=== PATIENT | female | born 1945 | race Caucasian/White ===

== ENCOUNTER → 2016-09-11 | Outpatient (CLI) | payer MEDICARE ==
[~2016-09-11] MED LIST: /WARF25TA OR; AMITRIPTYLINE PO; ASPIRIN PO; CALAN SR PO; CLARITAN PO; CRESTOR PO; FLONASE; KLOR CON PO; LASIX PO; LOPID PO; METFORMIN PO; MOBIC PO; PLAQUENIL PO; PROTPAK PO; TOPRAL PO; TYLE325T5 PO; ULTR50TA PO
--- NOTE | 2016-09-11 10:22 | REP ---
Chest two views HISTORY: Hypertension Comparison: 04/20/2014 The lungs are clear. The cardiac silhouette is enlarged. The pulmonary vasculature is normal in appearance. The bony structure is intact. IMPRESSION: Cardiomegaly. Signed by Pal Lin MD 09/11/2016 10:14 A
[2016-09-11 14:28] LABS: MEAN CORPUSCULAR HEMOGLOBIN 25.1 pg (27.0-33.0); MEAN CORPUSCULAR HGB CONC 30.9 g/dl (32.0-36.5); MEAN CORPUSCULAR VOLUME 81.3 fl (80.0-96.0); RED CELL DISTRIBUTION WIDTH 15.8 % (11.5-14.5); WHITE BLOOD COUNT 5.2 K/mm3 (4.0-10.0)
[2016-09-11 14:50] LABS: ALBUMIN 4.3 GM/DL (3.2-5.2); ALBUMIN/GLOBULIN RATIO 1.43 (1.00-1.93); ALKALINE PHOSPHATASE 54 U/L (45-117); ALT/SGPT 39 U/L (12-78); ANION GAP 9 MEQ/L (8-16); AST/SGOT 12 U/L (15-37); BILIRUBIN,TOTAL 0.6 MG/DL (0.2-1.0); BLOOD UREA NITROGEN 21 MG/DL (7-18); CALCIUM LEVEL 9.8 MG/DL (8.8-10.2); CARBON DIOXIDE LEVEL 31 MEQ/L (21-32); CHLORIDE LEVEL 101 MEQ/L (98-107); CHOLESTEROL LEVEL 215 MG/DL (<200); GLOMERULAR FILTRATION RATE > 60.0 (>39); GLUCOSE, FASTING 166 MG/DL (83-110); POTASSIUM SERUM 4.4 MEQ/L (3.5-5.1); SODIUM LEVEL 141 MEQ/L (136-145); TOTAL PROTEIN 7.3 GM/DL (6.4-8.2); TRIGLYCERIDES LEVEL 366 MG/DL (<150)
== END ==
LOC: M SMT 09:42
PROVIDERS: ATTEND Family Medicine
DX: I10 Essential (primary) hypertension (principal); E11.9 Type 2 diabetes mellitus without complications; R53.83 Other fatigue; I51.7 Cardiomegaly

== ENCOUNTER → 2016-11-16 | Outpatient (CLI) | payer MEDICARE ==
[2016-11-16 17:49] LABS: BASO % 0.7 % (0.0-1.0); EOS # 0.2 K/mm3 (0.0-0.50); EOS % 2.2 % (0.0-3.0); LARGE UNSTAINED CELL # 0.1 K/mm3 (0.0-0.4); LARGE UNSTAINED CELL % 2.1 % (0.0-4.0); LYMPH # 2.7 K/mm3 (1.5-4.5); MEAN CORPUSCULAR HEMOGLOBIN 25.7 pg (27.0-33.0); MEAN CORPUSCULAR HGB CONC 31.6 g/dl (32.0-36.5); MEAN CORPUSCULAR VOLUME 81.6 fl (80.0-96.0); MONO # 0.6 K/mm3 (0.0-0.8); MONO % 8.4 % (0.0-5.0); NEUTROPHILS # 3.4 K/mm3 (1.8-7.7); NEUTROPHILS % 49.6 % (36.0-66.0); PLATELET COUNT, AUTOMATED 224 k/mm3 (150-450); RED CELL DISTRIBUTION WIDTH 15.6 % (11.5-14.5); WHITE BLOOD COUNT 6.9 K/mm3 (4.0-10.0)
[2016-11-16 18:03] LABS: ALT/SGPT 32 U/L (12-78); CREATININE FOR GFR 0.88 MG/DL (0.55-1.02); GLOMERULAR FILTRATION RATE > 60.0 (>39)
[2016-11-16 20:18] LABS: ERYTHROCYTE SEDIMENTATION RATE 8 mm/hr (0-30)
== END ==
LOC: M SMT 14:12
PROVIDERS: ATTEND Internal Medicine Rheumatology
DX: Z51.81 Encounter for therapeutic drug level monitoring (principal); Z79.899 Other long term (current) drug therapy; M35.1 Other overlap syndromes; K76.0 Fatty (change of) liver, not elsewhere classified

== ENCOUNTER 2018-01-08 07:01 | Day surgery (SDC) | payer MEDICARE ==
[2018-01-08] MEDS: NS 1,000 ML IV (07:28)
[2018-01-08 07:37] LABS: BEDSIDE GLUCOSE 169 MG/DL (83-110)
[2018-01-08] MEDS ORDERED: PROPOFOL 200 MG/20 ML VIAL As Ordered (08:24)
== END 2018-01-08 09:05 | disposition home or self-care (01) ==
LOC: M OPP 07:01
DX: Z12.11 Encounter for screening for malignant neoplasm of colon (principal); Z86.010 Personal history of colon polyps; K64.0 First degree hemorrhoids; K57.30 Diverticulosis of large intestine without perforation or abscess without bleeding; I10 Essential (primary) hypertension; E78.5 Hyperlipidemia, unspecified; E11.9 Type 2 diabetes mellitus without complications; K21.9 Gastro-esophageal reflux disease without esophagitis; R06.02 Shortness of breath; M19.90 Unspecified osteoarthritis, unspecified site; M54.9 Dorsalgia, unspecified; J02.9 Acute pharyngitis, unspecified; Z79.82 Long term (current) use of aspirin; Z79.899 Other long term (current) drug therapy; Z79.84 Long term (current) use of oral hypoglycemic drugs; Z87.891 Personal history of nicotine dependence; Z83.71 Family history of colonic polyps
CPT/HCPCS: G0105

== ENCOUNTER → 2018-08-13 | Outpatient (CLI) | payer MEDICARE ==
[~2018-08-13] MED LIST changes: +ASPI325T PO; +CORE12.5 PO; +GLIP5TAB8 PO; +LIPI80TA PO; +LOSA100T50 PO
[2018-08-13 13:13] LABS: HEMATOCRIT 38.8 % (36.0-47.0); HEMOGLOBIN 12.3 g/dl (12.0-15.5); MEAN CORPUSCULAR HEMOGLOBIN 27.3 pg (27.0-33.0); MEAN CORPUSCULAR HGB CONC 31.7 g/dl (32.0-36.5); MEAN CORPUSCULAR VOLUME 86.2 fl (80.0-96.0); PLATELET COUNT, AUTOMATED 227 10^3/uL (150-450); WHITE BLOOD COUNT 7.6 10^3/uL (4.0-10.0)
[2018-08-13 13:44] LABS: ALBUMIN 4.4 GM/DL (3.2-5.2); BILIRUBIN,TOTAL 0.4 MG/DL (0.2-1.0); CALCIUM LEVEL 10.3 MG/DL (8.8-10.2); CHOLESTEROL RISK RATIO 5.918 (<5); CREATININE FOR GFR 1.17 MG/DL (0.55-1.30); GLOMERULAR FILTRATION RATE 48.1 (>39); PERCENT SATURATION 16.4 % (13.2-45.0); POTASSIUM SERUM 4.5 MEQ/L (3.5-5.1); THYROID STIMULATING HORMONE 1.21 uIU/ML (0.358-3.740); TOTAL PROTEIN 8.1 GM/DL (6.4-8.2)
[2018-08-13 14:36] LABS: HEMOGLOBIN A1c 9.9 %
== END ==
LOC: M SMT 10:09
PROVIDERS: ATTEND Family Medicine
DX: D64.9 Anemia, unspecified (principal); E03.9 Hypothyroidism, unspecified; R53.81 Other malaise

== ENCOUNTER 2018-09-11 06:17 | Day surgery (SDC) | payer MEDICARE ==
[~2018-09-11] VITALS: Ht 165.1 cm; Wt 104.8 kg
[~2018-09-11 06:17] MED LIST changes: +ASPI1TAB PO; +CALA240T PO; +CLAR10CA3 PO; +FLON1SPR; +INVO100T PO; +KLOR1CAP PO; +LASI40TA9 PO; +LOPI600T PO; +METF10004 PO; +PROT1TAB2 PO; +SLOW142T PO; +XALA0.007 OU
[2018-09-11] MEDS ORDERED: BALANCED SALT IRRIGATION SOLUTION 500ML BAG (FOR OR EYE MACHINE) As Ordered ONE (06:35)
[2018-09-11] MEDS ORDERED: POVIDONE-IODINE 5% OPHTH PREP SOL 30ML As Ordered ONE (06:35)
[2018-09-11] MEDS ORDERED: CEFUROXIME 1MG/0.1ML INTRACAMERAL INJ As Ordered ONE (06:36)
[2018-09-11] MEDS ORDERED: LIDOCAINE 0.75%/EPINEPHRINE 0.025% IN BSS 1ML SYR INTRACAMERAL (OR ONLY) As Ordered ONE (06:36)
[2018-09-11] MEDS ORDERED: DUOVISC (0.50ML VISCOAT/0.55ML PROVISC) OPHTH KIT As Ordered ONE ×2 (06:36→08:29)
[2018-09-11] MEDS ORDERED: TROPICAMIDE 1% OPHTH SOLN 2ML OS ONE (07:00)
[2018-09-11] MEDS ORDERED: PROPARACAINE 0.5% OPHTH SOL 15ML OS ONE (07:00)
[2018-09-11] MEDS ORDERED: PHENYLEPHRINE 2.5% OPHTH SOL 2ML OS ONE (07:00)
[2018-09-11] MEDS ORDERED: OFLOXACIN 0.3 % (OCUFLOX) OPTH SOL 5ML OS ONE (07:00)
[2018-09-11] MEDS ORDERED: MIDAZOLAM INJ 2 MG/2 ML VIAL (J2250) As Ordered ONE (07:10)
[2018-09-11] MEDS ORDERED: fentaNYL 100 MCG/2 ML INJECTION (J3010) As Ordered ONE (07:10)
[2018-09-11 09:00] VITALS: BP 132/63
--- NOTE | 2018-09-15 09:58 | RO ---
DATE OF PROCEDURE: 09/11/2018 PREOPERATIVE DIAGNOSES: 1. Visually significant nuclear sclerotic cataract of the left eye. 2. Primary open angle glaucoma, mild stage. 3. Regular astigmatism. POSTOPERATIVE DIAGNOSES: 1. Visually significant nuclear sclerotic cataract of the left eye. 2. Primary open angle glaucoma, mild stage. 3. Regular astigmatism. PROCEDURES: 1. Extracapsular cataract removal, insertion of intraocular lens implant with placement of toric implant, 24.5 diopters with use of intraoperative aberrometry and femtosecond laser. 2. Use of endoscopic cyclophotocoagulation (270 degrees, continuous mode, 25). 3. Placement of Glaukos iStent. SURGEON: Carlos Green DO DRILLING ASSISTANT: None. ANESTHESIA: Local with monitored anesthesia care (MAC). COMPLICATIONS: None. POSTOPERATIVE CONDITION: Stable. INDICATIONS FOR SURGERY: 1. Blurred vision affecting patients activities of daily living. DESCRIPTION OF PROCEDURE: The patient was seen in the preoperative area and properly identified. The correct operative eye was identified and marked. The patient received topical anesthetic, antibiotics, and topical dilating drops. The patient was then transferred to the operating room. The correct side was re-identified, and a time-out was performed. The eye was prepped and draped in a sterile fashion. The eyelids were isolated with Tegaderm tape, and the lids were held open with an adjustable speculum. A 1.0 mm paracentesis incision was made. Intraocular preservative-free Shugarcaine was then injected into the anterior chamber. Viscoelastic was then injected into the anterior chamber through the paracentesis. Using a 2.4 mm sharp-tipped keratome, the anterior chamber was entered via a temporal clear cornea incision. A continuous curvilinear capsulorrhexis was created with Utrata forceps. Hydrodissection was performed with balanced salt solution (BSS) on a blunt cannula until the nucleus was able to rotate freely. The crystalline lens was phacoemulsified and aspirated. Irrigation/aspiration was used to remove the cortical material. Cohesive viscoelastic was placed into the capsular bag to deepen it. The implant was placed into the capsular bag and allowed to unfold. Placement was confirmed by visualizing the anterior capsulorrhexis. Additional viscoelastic was placed in the anterior chamber and ciliary sulcus. The endoscopic cyclophotocoagulation (ECP) probe was placed in the eye, and the ciliary processes were visualized. The laser was applied without difficulty, and the probe was withdrawn. Irrigation/aspiration was used to remove the viscoelastic. The clear corneal incision was hydrated with BSS on a blunt cannula. The lens was well positioned. The incisions were then tested for leaks and found to be negative. The eye was then palpated for appropriate pressure and adjusted accordingly with BSS. The eyelid speculum was then carefully removed. A shield was placed over the eye. The patient tolerated the procedure well and was discharged to the recovery unit in a stable condition.
== END 2018-09-11 09:15 | disposition home or self-care (01) ==
LOC: M SDC 06:17
PROVIDERS: ATTEND Ophthalmology
DX: H25.12 Age-related nuclear cataract, left eye (principal); H40.1121 Primary open-angle glaucoma, left eye, mild stage; H52.222 Regular astigmatism, left eye; I10 Essential (primary) hypertension; E78.5 Hyperlipidemia, unspecified; E11.9 Type 2 diabetes mellitus without complications; K21.9 Gastro-esophageal reflux disease without esophagitis; I49.9 Cardiac arrhythmia, unspecified; R06.02 Shortness of breath; M54.9 Dorsalgia, unspecified; D50.9 Iron deficiency anemia, unspecified; M12.9 Arthropathy, unspecified; E66.01 Morbid (severe) obesity due to excess calories; Z68.38 Body mass index [BMI] 38.0-38.9, adult; Z79.899 Other long term (current) drug therapy; Z79.84 Long term (current) use of oral hypoglycemic drugs; Z79.82 Long term (current) use of aspirin; Z78.0 Asymptomatic menopausal state; Z98.51 Tubal ligation status; Z96.653 Presence of artificial knee joint, bilateral
CPT/HCPCS: 66183; 66711; 66984; C1783; J2250; J3010; V2787

== ENCOUNTER 2018-10-09 06:03 | Day surgery (SDC) | payer MEDICARE ==
[~2018-10-09] VITALS: Ht 165.1 cm; Wt 104.3 kg
[~2018-10-09 06:03] MED LIST changes: -/WARF25TA OR; +ASPI-1 PO; -ASPI1TAB PO; -ASPI325T PO; +ASPI81TA26 PO; +COUM1TAB18 OR
[2018-10-09] MEDS ORDERED: BALANCED SALT IRRIGATION SOLUTION 500ML BAG (FOR OR EYE MACHINE) As Ordered ONE (06:29)
[2018-10-09] MEDS ORDERED: POVIDONE-IODINE 5% OPHTH PREP SOL 30ML As Ordered ONE (06:29)
[2018-10-09] MEDS ORDERED: CEFUROXIME 1MG/0.1ML INTRACAMERAL INJ As Ordered ONE (06:30)
[2018-10-09] MEDS ORDERED: LIDOCAINE 0.75%/EPINEPHRINE 0.025% IN BSS 1ML SYR INTRACAMERAL (OR ONLY) As Ordered ONE (06:31)
[2018-10-09] MEDS ORDERED: DUOVISC (0.50ML VISCOAT/0.55ML PROVISC) OPHTH KIT As Ordered ONE ×2 (06:31→07:00)
[2018-10-09] MEDS ORDERED: OFLOXACIN 0.3 % (OCUFLOX) OPTH SOL 5ML OD ONE (07:00)
[2018-10-09] MEDS ORDERED: PHENYLEPHRINE 2.5% OPHTH SOL 2ML OD ONE (07:00)
[2018-10-09] MEDS ORDERED: PROPARACAINE 0.5% OPHTH SOL 15ML OD ONE (07:00)
[2018-10-09] MEDS ORDERED: TROPICAMIDE 1% OPHTH SOLN 2ML OD ONE (07:00)
[2018-10-09] MEDS ORDERED: MIDAZOLAM INJ 2 MG/2 ML VIAL (J2250) As Ordered ONE (07:36)
[2018-10-09] MEDS ORDERED: fentaNYL 100 MCG/2 ML INJECTION (J3010) As Ordered ONE (07:36)
[2018-10-09 08:01] VITALS: BP 155/63
[2018-10-09] MEDS ORDERED: ONDANSETRON 4MG/2ML VIAL (J2405) IV PRN (08:15)
[2018-10-09] MEDS ORDERED: ACETAMINOPHEN TAB 650MG DOSE (2X325MG) PO PRN (08:15)
--- NOTE | 2018-10-14 17:30 | RO ---
DATE OF PROCEDURE: 10/09/2018 PREOPERATIVE DIAGNOSES: 1. Visually significant nuclear sclerotic cataract right eye. 2. Primary open angle glaucoma right eye. POSTOPERATIVE DIAGNOSES: 1. Visually significant nuclear sclerotic cataract right eye. 2. Primary open angle glaucoma right eye. PROCEDURE: 1. Cataract extraction with use of phacoemulsification and placement of intraocular lens, SN6AT3 at 003 degrees, right eye, with the use of intraoperative aberrometry. 2. Placement of Glaukos iStent right eye. 3. Use of endoscopic cyclophotocoagulation right eye (270 degrees, continuous mode, 25). SURGEON: Carlos Green DO TRAVEL RN OR: None. ANESTHESIA: Local with monitored anesthesia care (MAC). COMPLICATIONS: None. POSTOPERATIVE CONDITION: Stable. INDICATIONS FOR SURGERY: Blurred vision affecting patients activities of daily living. DESCRIPTION OF PROCEDURE: The patient was seen in the preoperative area and properly identified. The correct operative eye was identified and marked. The patient received topical anesthetic, antibiotics, and topical dilating drops. The patient was then transferred to the operating room. The correct side was re-identified, and a time-out was performed. The eye was prepped and draped in a sterile fashion. The eyelids were isolated with Tegaderm tape, and the lids were held open with an adjustable speculum. A 1.0 mm paracentesis incision was made. Intraocular preservative-free Shugarcaine was then injected into the anterior chamber. Viscoelastic was then injected into the anterior chamber through the paracentesis. Using a 2.4 mm sharp-tipped keratome, the anterior chamber was entered via a temporal clear cornea incision. A continuous curvilinear capsulorrhexis was created with Utrata forceps. Hydrodissection was performed with balanced salt solution (BSS) on a blunt cannula until the nucleus was able to rotate freely. The crystalline lens was phacoemulsified and aspirated. Irrigation/aspiration was used to remove the cortical material. Cohesive viscoelastic was placed into the capsular bag to deepen it. The Optiwave Refractive Analysis (ORA) device was turned on, two sets of measurements were obtained, and the implant power was confirmed. The implant was placed into the capsular bag and allowed to unfold. Placement was confirmed by visualizing the anterior capsulorrhexis. Additional viscoelastic was placed in the anterior chamber and on top of the cornea. The head was untaped and rotated away. The microscope was rotated to 45 degrees. A gonioprism was placed on the cornea, and the angle was visualized. An iStent was placed into the trabecular meshwork without difficulty. A small gush of heme was noted at the iStent snorkel tip, indicating appropriate placement. A gentle tapping motion was used to seat the stent into position. The head was placed face up and the microscope to 0 degrees. Additional viscoelastic was placed in the anterior chamber and ciliary sulcus. The endoscopic cyclophotocoagulation (ECP) probe was placed in the eye, and the ciliary processes were visualized. The laser was applied without difficulty, and the probe was withdrawn. Irrigation/aspiration was used to remove the viscoelastic. The clear corneal incision was hydrated with BSS on a blunt cannula. The lens was well positioned. The incisions were then tested for leaks and found to be negative. The eye was then palpated for appropriate pressure and adjusted accordingly with BSS. The eyelid speculum was then carefully removed. A shield was placed over the eye. The patient tolerated the procedure well and was discharged to the recovery unit in a stable condition.
== END 2018-10-09 08:23 | disposition home or self-care (01) ==
LOC: M SDC 06:03
PROVIDERS: ATTEND Ophthalmology
DX: H25.11 Age-related nuclear cataract, right eye (principal); H40.1111 Primary open-angle glaucoma, right eye, mild stage; E11.9 Type 2 diabetes mellitus without complications; I10 Essential (primary) hypertension; E78.5 Hyperlipidemia, unspecified; K21.9 Gastro-esophageal reflux disease without esophagitis; Z79.82 Long term (current) use of aspirin; Z79.01 Long term (current) use of anticoagulants; Z79.899 Other long term (current) drug therapy; Z79.84 Long term (current) use of oral hypoglycemic drugs
CPT/HCPCS: 66183; 66711; 66984; C1783; J2250; J3010; V2787

== ENCOUNTER → 2018-11-19 | Outpatient (CLI) | payer MEDICARE ==
[2018-11-19 13:54] LABS: APPEARANCE, URINE CLEAR (CLEAR); BACTERIA, URINE AUTO NEGATIVE (NEGATIVE); BILIRUBIN, URINE AUTO NEGATIVE (NEGATIVE); BLOOD, URINE BLOOD NEGATIVE (NEGATIVE); COLOR, URINE YELLOW (YELLOW); GLUCOSE, URINE (UA) AUTO 3+ mg/dL (NEGATIVE); KETONE, URINE AUTO NEGATIVE (NEGATIVE); LEUKOCYTE ESTERASE, URINE AUTO 3+ (NEGATIVE); MUCUS, URINE SMALL (NEGATIVE); NITRITE, URINE AUTO NEGATIVE (NEGATIVE); PROTEIN, URINE AUTO 1+ mg/dL (NEGATIVE); RBC, URINE AUTO 7 /HPF (0-3); SPECIFIC GRAVITY URINE AUTO 1.013 (1.002-1.035); SQUAMOUS EPITHELIAL CELL UR AU 0 /HPF (0-6); UROBILINOGEN, URINE AUTO 0.2 mg/dL (0.0-2.0); WBC, URINE AUTO TNTC /HPF (0-3)
== END ==
LOC: M SMT 09:52
PROVIDERS: ATTEND Family Medicine
DX: N39.0 Urinary tract infection, site not specified (principal)

== ENCOUNTER → 2019-02-13 | Outpatient (CLI) | payer MEDICARE ==
--- NOTE | 2019-02-17 13:16 | DEXA ---
AP SPINE L1 - L4 1.352 1.3 3.0 LT FEMUR TOTAL 1.073 0.5 2.3 LT NECK 0.898 -1.0 0.9 RT FEMUR TOTAL 1.020 0.1 1.8 RT NECK 0.913 -0.9 1.0 TOTAL BODY TOTAL OTHER COMMENTS: Normal bone densitometry of the spine. Normal bone densitometry of the right hip. There is low bone density of the left hip. The density of the spine has increased 6.5% since 07/14/2001. The density of the left hip has decreased 10.7% since 07/14/2001. The density of the right hip has decreased 9.8% since 07/14/2001. FOLLOW-UP: Recommendation for the next bone density exam: [address]
== END ==
LOC: M WHC 12:41
PROVIDERS: ATTEND Nurse Practitioner Family
DX: N95.9 Unspecified menopausal and perimenopausal disorder (principal)

== ENCOUNTER → 2019-03-18 | Outpatient (CLI) | payer MEDICARE ==
[2019-03-18 13:37] LABS: CHOLESTEROL RISK RATIO 5.647 (<5); PERCENT SATURATION 20.1 % (13.2-45.0); THYROID STIMULATING HORMONE 1.04 uIU/ML (0.358-3.740); TOTAL 25(OH) VITAMIN D 34.1 NG/ML (30.0-100.0)
[2019-03-18 14:07] LABS: HEMOGLOBIN A1c 7.7 %
== END ==
LOC: M SMT 10:23
PROVIDERS: ATTEND Family Medicine
DX: E11.9 Type 2 diabetes mellitus without complications (principal); E03.9 Hypothyroidism, unspecified; R53.83 Other fatigue; D64.9 Anemia, unspecified

== ENCOUNTER → 2019-10-14 | Outpatient (CLI) | payer MEDICARE ==
[2019-10-14 12:51] LABS: HEMATOCRIT 39.4 % (36.0-47.0); HEMOGLOBIN 13.4 g/dl (12.0-15.5); MEAN CORPUSCULAR HEMOGLOBIN 31.5 pg (27.0-33.0); MEAN CORPUSCULAR VOLUME 92.7 fl (80.0-96.0); PLATELET COUNT, AUTOMATED 185 10^3/uL (150-450); RED BLOOD COUNT 4.25 10^6/uL (4.00-5.40); WHITE BLOOD COUNT 7.4 10^3/uL (4.0-10.0)
[2019-10-14 13:17] LABS: ALBUMIN 4.2 GM/DL (3.2-5.2); ALT/SGPT 36 U/L (12-78); BILIRUBIN,TOTAL 0.5 MG/DL (0.2-1.0); BLOOD UREA NITROGEN 39 MG/DL (7-18); CALCIUM LEVEL 10.4 MG/DL (8.8-10.2); CARBON DIOXIDE LEVEL 27 MEQ/L (21-32); CHLORIDE LEVEL 100 MEQ/L (98-107); CHOLESTEROL LEVEL 327 MG/DL (<200); CHOLESTEROL RISK RATIO 6.055 (<5); CREATININE FOR GFR 1.34 MG/DL (0.55-1.30); GLUCOSE, FASTING 264 MG/DL (70-100); HDL CHOLESTEROL 54 MG/DL (>40); IRON (FE) 85 UG/DL (50-170); MAGNESIUM LEVEL 2.4 MG/DL (1.8-2.4); NON-HDL-C 273 MG/DL; PERCENT SATURATION 20.5 % (13.2-45.0); POTASSIUM SERUM 4.7 MEQ/L (3.5-5.1); PROSTATIC SPECIFIC AG MONITOR < 0.01 NG/ML (< 4.00); SODIUM LEVEL 136 MEQ/L (136-145); TOTAL IRON BINDING CAPACITY 415 UG/DL (250-450); TOTAL PROTEIN 7.8 GM/DL (6.4-8.2); TRIGLYCERIDES LEVEL 518 MG/DL (<150)
[2019-10-14 13:18] LABS: HEMOGLOBIN A1c 9.9 %
[2019-10-14 13:21] LABS: TOTAL 25(OH) VITAMIN D 42.8 NG/ML (30.0-100.0)
[2019-10-14 13:22] LABS: VITAMIN B12 LEVEL 331 PG/ML (247-911)
--- NOTE | 2019-10-14 13:56 | REP ---
CHEST, TWO VIEWS: Two views of the chest performed. COMPARISON: 02/10/2018 There si mild bibasilar interstitial fibrotic scarring. No acute infiltrate is seen. There is mild cardiomegaly. The mediastinal silhouette is unchanged. There are degenerative changes of the spine. IMPRESSION: Stable chronic changes and mild cardiomegaly. No acute infiltrate. Electronically Signed by Usama Arce MD 10/14/2019 02:22 P
--- NOTE | 2019-10-15 19:25 | ECGEPIP ---
[facility] Test Date: 2019-10-14 Pat Name: LUIS ELLIOTT Department: Room: - Gender: Female Patient Service Associate: CORTNEY : 1945 Requested By: David Olivares Order Number: [id number] Reading MD: Jas Osborn Measurements Intervals [place] Rate: 79 P: 57 [place]: 241 QRS: -50 QRSD: 121 T: 12 QT: 405 QTc: 465 Interpretive Statements Normal sinus rhythm with first degree AV block Left anterior fascicular block Nonspecific T wave abnormality Compared to prior tracing of 02/10/2018, right bundle branch block is no longer e evident Electronically Signed on 10-15-2019 19:25:06 EDT by Jas Osborn
== END ==
LOC: M LAB 12:02
PROVIDERS: ATTEND Family Medicine
DX: I10 Essential (primary) hypertension (principal); R53.83 Other fatigue; I51.7 Cardiomegaly; E11.9 Type 2 diabetes mellitus without complications

== ENCOUNTER → 2020-03-28 | Outpatient (REF) | payer MEDICARE ==
[2020-03-28 18:22] LABS: CRYSTALS, BODY FLUID URIC ACID (NONE SEEN); SOURCE, BODY FLUID CRYSTALS OTHER
== END ==
LOC: M LAB REF 16:47
PROVIDERS: ATTEND Podiatrist
DX: M79.672 Pain in left foot (principal)

== ENCOUNTER → 2020-10-20 | Outpatient (CLI) | payer MEDICARE ==
[2020-10-20 13:09] LABS: HEMATOCRIT 40.7 % (36.0-47.0); HEMOGLOBIN 13.3 g/dl (12.0-15.5); MEAN CORPUSCULAR HEMOGLOBIN 30.1 pg (27.0-33.0); MEAN CORPUSCULAR HGB CONC 32.7 g/dl (32.0-36.5); MEAN CORPUSCULAR VOLUME 92.1 fl (80.0-96.0); PLATELET COUNT, AUTOMATED 174 10^3/uL (150-450); RED BLOOD COUNT 4.42 10^6/uL (4.00-5.40); WHITE BLOOD COUNT 5.5 10^3/uL (4.0-10.0)
[2020-10-20 13:49] LABS: ALBUMIN 4.4 GM/DL (3.2-5.2); BILIRUBIN,TOTAL 0.5 MG/DL (0.2-1.0); CALCIUM LEVEL 11.4 MG/DL (8.8-10.2); CHOLESTEROL RISK RATIO 5.384 (<5); CREATININE FOR GFR 1.03 MG/DL (0.55-1.30); GLOMERULAR FILTRATION RATE 55.5 (>39); MAGNESIUM LEVEL 2.2 MG/DL (1.8-2.4); POTASSIUM SERUM 4.4 MEQ/L (3.5-5.1); THYROID STIMULATING HORMONE 1.09 uIU/ML (0.358-3.740); TOTAL 25(OH) VITAMIN D 40.7 NG/ML (30.0-100.0); TOTAL PROTEIN 7.7 GM/DL (6.4-8.2); URIC ACID 4.8 MG/DL (2.6-6.0)
[2020-10-20 14:39] LABS: HEMOGLOBIN A1c 11.1 %
[2020-10-22 17:07] LABS: Lyme Disease IgG Ab 18 kDa Ban Absent (.); Lyme Disease IgG Ab 23 kDa Ban Present (.); Lyme Disease IgG Ab 28 kDa Ban Absent (.); Lyme Disease IgG Ab 30 kDa Ban Absent (.); Lyme Disease IgG Ab 39 kDa Ban Absent (.); Lyme Disease IgG Ab 41 kDa Ban Present (.); Lyme Disease IgG Ab 45 kDa Ban Absent (.); Lyme Disease IgG Ab 58 kDa Ban Absent (.); Lyme Disease IgG Ab 66 kDa Ban Absent (.); Lyme Disease IgG Ab 93 kDa Ban Absent (.); Lyme Disease IgG West Blot Int Negative (.); Lyme Disease IgG/IgM Antibodie <0.91 ISR (0.00-0.90); Lyme Disease IgM Ab 23 kDa Ban Absent (.); Lyme Disease IgM Ab 39 kDa Ban Absent (.); Lyme Disease IgM Ab 41 kDa Ban Absent (.); Lyme Disease IgM Ab Quantitati 0.84 index (0.00-0.79); Lyme Disease IgM West Blot Int Negative (.)
== END ==
LOC: M LAB 12:34
PROVIDERS: ATTEND Family Medicine
DX: I10 Essential (primary) hypertension (principal); R53.83 Other fatigue; E11.9 Type 2 diabetes mellitus without complications; Z79.899 Other long term (current) drug therapy

== ENCOUNTER 2021-05-02 18:04 | Inpatient (IN) | payer MEDICARE ==
[~2021-05-02] VITALS: Ht 165.1 cm; Wt 92.7 kg
--- OUTSIDE RECORDS SUMMARY | 2021-05-02 18:15 | CCD | Continuity of Care Document ---
Author Author Leilani MELVIN MD Organization Unknown Address [address] [place] [address], [facility] [address] [place] [address] Phone [phone] Care Team Providers Care Batter Mixer Name Role Phone Marshall Glasgow MD [facility] [phone] Problems Active Problems Provider Date Essential hypertension Onset: 11/24/2020 Pure hypercholesterolemia Onset: 021 Social History Type Date Description Comments Sex Unknown Cigarette Use Former Cigarette Smoker 1/2 Pack Daily quit 40 years ago ETOH Use Occasionally consumes alcohol Allergies and adverse reactions Description No Known Drug Allergies Medications Active Medications SIG Qnty Indications Ordering Provide r Date Novofine Plus 32G X 4 mm Misc use as directed with ozempic once weekly 50units E11.65 Vaishnavi kumar MD 01/13/2021 Ozempic (0.25 Or 0.5 MG/Dose) 2mg/1.5ML Solution Pen-Inject use 0.5mg weekly 4.5ml E11.65 Vaishnavi Melvin MD 11/28/2020 Metformin HCL 1000mg Tablets 1 by mout twice daily Unknown Magnesium 500mg Tablets 1 by mouth daily Unknown Alpha-Lipoic Acid 600mg Tablets 1 by mouth once a day Unknown Zinc 50mg Tablets 1 by mouth daily Unknown Vitamin D3 50mcg (2000 Ut) Capsule s 1 by mouth every day Unknown Super B-Complex/Folic Acid/Vitamin C Tablets 1 by mouth daily Unknown Turmeric Curcumin 500mg Capsules 1 by mouth daily Unknown Vitamin B1 100mg Tablets 1 by mouth every day Unknown Vitamin B6 100mg Tablets 1 by mouth daily Unknown Biotin 10mg Capsules 1 by francisco th daily Unknown Folic Acid 400mcg Tablets 1 by mouth every day Unknown Glipizide 5mg Tablets 1 by mouth twice daily Unknown Allopurinol 300mg Tablets 1 by mouth daily Unknown Atorvastatin Calcium 80mg Tablets 1 by mouth daily Unknown Gemfibrozil 600mg Tablets 1 by mouth twice daily Unknown Colchicine 0.6mg Capsules 1 by mouth daily as needed Unknown Aspirin 81mg Tablets DR 1 by mouth every day Unknown Losartan Potassium 100mg Tablets 1 by mouth daily Unknown Verapamil HCL ER 240mg Caps ER 24H R 1 by mouth daily Unknown Pantoprazole Sodium 40mg Tablets D R 1 by mouth daily Unknown Furosemide 40mg Tablets 1 by mouth daily Unknown Carvedilol 12.5mg Tablets 1 by mouth twice daily Unknown Accu-Chek Daysi Device use as directed to check blood sugars Unknown History Medications Freestyle Paul 2/[place]/Flash Glucose M onitoring System 2Reader Device use as directed to check blood sugars 1units E11.65 Vaishnavi Melvin MD 01/27/2021 - 01/27/2021 Immunizations Description No Information Available Vital Signs Date Vital Result Comment 03/21/2021 9:57am BP Systolic 124 mmHg BP Diastolic 70 mmHg Heart Rate 81 /min Weight 204.12 lb O2 % BldC Oximetry 98 % 11/28/2020 1:08pm BP Systolic 132 mmHg BP Diastolic 62 mmHg Heart Rate 63 /min Body Temperature 96.5 F Height 62.6 inches 5'2.60" Weight 211.00 lb BMI (Body Mass Index) 37.9 kg/m2 O2 % BldC Oximetry 98 % Results Test Acquired Date Facility Test Result H/L Range Note Laboratory test finding 03/21/2021 In House Glucose 152 Hemoglobin A1c 6.3 Procedures Date Code Description Status 03/21/2021 69116 Office/Outpatient Established Mo d MDM 30-39 Min Completed 11/28/2020 17194 Office/Outpatient New High MDM 6 0-74 Minutes Completed 09/2020 [id number] Diabetic Foot Exam Completed Medical Devices Description No Information Available Encounters Type Date Location Provider Dx Diagnosis Office Visit 03/21/2021 10:00a DR. Vaishnavi Melvin MD E 11.65 Type 2 diabetes mellitus with hyperglycemia E78.2 Mixed hyperlipidemia E83.52 Hypercalcemia M10.00 Idiopathic gout, unspecified site Office Visit 11/28/2020 1:00p DR. Vaishnavi Melvin MD E 11.65 Type 2 diabetes mellitus with hyperglycemia E78.2 Mixed hyperlipidemia E83.52 Hypercalcemia M10.00 Idiopathic gout, unspecified site Assessments Date Code Description Provider 03/21/2021 E11.65 Type 2 diabetes mellitus with hy perglycemia Vaishnavi Melvin MD 03/21/2021 E78.2 Mixed hyperlipidemia Vaishnavi Melvin MD 03/21/2021 E83.52 Hypercalcemia Vaishnavi Melvin MD 03/21/2021 M10.00 Idiopathic gout, unspecified sit e Vaishnavi Melvin MD 11/28/2020 E11.65 Type 2 diabetes mellitus with hy perglycemia Vaishnavi Melvin MD 11/28/2020 E78.2 Mixed hyperlipidemia Vaishnavi Melvin MD 11/28/2020 E83.52 Hypercalcemia Vaishnavi Melvin MD 11/28/2020 M10.00 Idiopathic gout, unspecified sit e Vaishnavi Melvin MD Plan of Treatment Future Appointment(s):* 06/29/2021 11:15 am - Vaishnavi Melvin MD at DR. Vaishnavi Melvin 03/21/2021 - Vaishnavi Melvin MD* E11.65 Type 2 diabetes mellitus with hyperglycemia* Comments:* In office A1c = 6.3%. Much improved from previous. Blood glucose 152 Out of office A1c= 11.1% ( 10/20/2020)10/20/20, BUN 30, creatinine = 1.03, GFR = 55Calcium = 11.4Liver function normalLDL = 153, HDL = 52, triglycerides = 375, total cholesterol = 280TSH = 1.0925 OHD = 40Hemoglobin hematocrit = 13/40 meter downloaded: She checks various times the day. She checks them frequently. Blood sugars average 1:30-190 current medication: Metformin HCL 1000 mg 1 by mouth twice daily , glipizide 5 mg 1 by mouth twice a day, Jardiance 10 mg, self DC'd due to yeast infectionsOzempic 0.5 mg once weekly:Recommendations:--She reports some sweating/hypoglycemia that occurs in the middle the night. Unfortunately she has been taking her glipizide at bedtime.#1: Counseled that she is to take her glipizide with her meals. If she continues to have low blood sugars at night she is advised to cut the tablet in half at dinner time. Otherwise no medication changes#2: Patient was given a sample of the Ozempic. She initially had some GI distress but symptoms are improving.#3: Dietary habits are improving. . * Follow up:* 3 months- fish * E78.2 Mixed hyperlipidemia* Comments:* 10/20/20, LDL = 153, HDL = 52, triglycerides = 375, total cholesterol = 280Goal for LDL <100.She is not at her LDL goal, and triglycerides are also elevated.She is on maximal dose atorvastatin and states that she is compliant.Would add in ZETIA in addition or switch to Crestor therapy.We'll defer to PCP at this time. * E83.52 Hypercalcemia* Comments:* Calcium level is high. This is in the face of Lasix therapy which is unusual. She will need recheck before follow-up or at follow-up. * M10.00 Idiopathic gout, unspecified site* Comments:* Patient is advised to remain on allopurinol therapy however she should not be taking colchicine long-term. She did discontinue her colchicine is recommended since her last appointment. Functional Status Description No Information Available Mental Status Description No Information Available Referrals Description No Information Available
--- OUTSIDE RECORDS SUMMARY | 2021-05-02 18:16 | CCD | Continuity of Care Document ---
Author Author Leilani MELVIN MD Organization Unknown Address [address] [place] [address], [facility] [address] [place] [address] Phone [phone] Care Team Providers Care Script Writer Name Role Phone Marshall Glasgow MD [facility] [phone] Problems Active Problems Provider Date Essential hypertension Onset: 11/24/2020 Pure hypercholesterolemia Onset: 021 Social History Type Date Description Comments Sex Unknown Cigarette Use Former Cigarette Smoker 1/2 Pack Daily quit 40 years ago ETOH Use Occasionally consumes alcohol Allergies, Adverse Reactions, Alerts Description No Known Drug Allergies Medications Active [...] by mouth daily Unknown Vitamin D3 50mcg (1999 Ut) Capsule s 1 by mouth every [...] blood sugars Unknown History Medications Freestyle Paul 2/[place]/Flash Glucose M onitoring System 2Reader Device use [...] A1c 6.3 Procedures Date Code Description Status 11/28/2020 68202 Office/Outpatient New High MDM 6 0-74 Minutes Completed 09/2020 [id number] Diabetic Foot Exam Completed Medical Devices Description No Information Available Encounters Type Date Location Provider Dx Diagnosis Office Visit 11/28/2020 1:00p DR. Vaishnavi Melvin [...] e Vaishnavi Melvin MD Plan of Treatment No Information Available Functional Status Description No Information Available Mental Status Description No Information Available Referrals Description No Information Available
--- OUTSIDE RECORDS SUMMARY | 2021-05-02 18:16 | CCD ---
Author Author Edin Kelley MD [facility] Organization Edin Kelley MD [facility] Address [address] [place] [address] Phone Care Team Providers Care Wood Chopper Name Role Phone Myah ADAMS, Marshall PP [phone] Peter CASAS, Carlos Unavailable [phone] Reason for Referral No Reason for Referral Recorded Problems Includes: Active, inactive, and resolved Problems All Visits Onset Date - Time Resolved Date - Time Provider Co ndition Status Cataract Senile Nuclear 09/23/2018 - 12:00AM Carlos narayanan DO Inactive Pseudophakia 09/18/2018 - 12:00AM Carlos Green DO Active Glaucoma Open-angle Primary 08/06/2018 - 12:00AM Lc Green DO Active Taking Medication For Diabetes Long-term Use of Oral H ypoglycemics 08/06/2018 - 12:00AM Carlos Green DO Active Diabetes Mellitus Type 2 Without Complication 08/06/2018 - 12:00 AM Carlos Green DO Active Cataract Senile Nuclear 08/06/2018 - 12:00AM Unknown - Unknown M alma rosa Green DO Resolved Dry Eye Syndrome 08/06/2018 - 12:00AM Carlos albright DO Active Vitreous Disorders Degeneration 08/06/2018 - 12:00AM Abe Green DO Active Plan of Treatment Pending Tests Order Diagnosis Results Due Ordering Provi bob Testing Ordered - OCT OCT DISC Primary open-angle glaucoma, bilateral, mild stage 09/14/21 Carlos Green DO Future Appointments Date Time Location Provider 1 Year Follow-Up 09/14/2021 12:30PM Edin Kelley MD [facility] Carlos Peter DO Assessments Includes: Assessments for all patient encounters Findings Encounter Date Assessment of long-term use of oral hypoglycemics 9 Mo nth Follow-Up with Carlos Green DO 09/13/2020 Dry eye syndrome 9 Month Follow-Up with Carlos Green DO 09/13/2020 Primary open-angle glaucoma 9 Month Follow-Up with Carlos narayanan DO 09/13/2020 Pseudophakia 9 Month Follow-Up with Carlos Green DO 09/13/2020 Type 2 diabetes mellitus without complication 9 Month Follow-Up with Carlos Green DO 09/13/2020 Primary open-angle glaucoma VISUAL FIELD 24-2 with Carlos narayanan DO 01/21/2020 Assessment of long-term use of oral hypoglycemics 9 Mo nth Follow-Up with Carlos Grene DO 12/11/2019 Dry eye syndrome 9 Month Follow-Up with Carlos Green DO 12/11/2019 Primary open-angle glaucoma 9 Month Follow-Up with Carlos narayanan DO 12/11/2019 Pseudophakia 9 Month Follow-Up with Carlos Green DO 12/11/2019 Type 2 diabetes mellitus without complication 9 Month Follow-Up with Carlos Green DO 12/11/2019 Primary open-angle glaucoma 3 Month Follow-Up with Carlos narayanan DO 02/04/2019 Primary open-angle glaucoma VISUAL FIELD 24-2 with Carlos narayanan DO 11/26/2018 Pseudophakia 3 - 4 WK Post CAT SX with Carlos shaw DO 10/30/2018 Pseudophakia 1 Week Post OP with Carlos Green DO 10/17/2018 Pseudophakia 1 Day Post OP with Carlos Green DO 10/10/2018 Nuclear senile cataract POST OP VISIT WITH PRE-OP with Lc Green DO 09/19/2018 Pseudophakia POST OP VISIT WITH PRE-OP with Carlos narayanan DO 09/19/2018 Pseudophakia 1 Day Post OP with Carlos Green DO 09/12/2018 Nuclear senile cataract 1 WK PREOP FOR SURGERY with Carlos Green DO 09/05/2018 Primary open-angle glaucoma IOP CHECK WITH TESTING with Ronal Green DO 08/20/2018 Dry eye syndrome NEW PATIENT WITH REFERRAL with Carlos narayanan DO 08/06/2018 Long-term use of oral hypoglycemics NEW PATIENT WITH R EFERRAL with Carlos Green DO 08/06/2018 Nuclear senile cataract NEW PATIENT WITH REFERRAL with Lc Green DO 08/06/2018 Primary open-angle glaucoma NEW PATIENT WITH REFERRAL with Abe Green DO 08/06/2018 Type 2 diabetes mellitus without complication [facility] WITH REFERRAL with Carlos Green DO 08/06/2018 Vitreous degeneration NEW PATIENT WITH REFERRAL with Carlos Green DO 08/06/2018 Instructions Instructions not supported for this document typeNo Instructions Recorded Medical Equipment - Implanted Devices Includes: Current and historical DevicesNo Medical Equipment Recorded Medications Includes: Current and historical Medications Current Medications (continue as prescribed) Allopurinol 300 MG Oral Tablet 09/13/2020 Provider: Diagnosis: Invokana 300 MG Oral Tablet 12/11/2019 Provider: Diagnosis: Protonix 40MG Oral Packet 08/06/2018 Provider: Diagnosis: Lopid 600MG Oral Tablet 08/06/2018 Provider: Diagnosis: Lipitor 80MG Oral Tablet 08/06/2018 Provider: Diagnosis: Metformin 500mg Oral Tablet 08/06/2018 Provider: Diagnosis: glipiZIDE 5MG Oral Tablet 08/06/2018 Provider: Diagnosis: Aspirin 81MG Oral Tablet Delayed Release 08/06/2018 Provider: Diagnosis: Flonase 100MCG/ACT Nasal Suspension 08/06/2018 Prov ider: Diagnosis: Coreg 12.5MG Oral Tablet 08/06/2018 Provider: Diagnosis: Losartan 100 mg Oral Tablet 08/06/2018 Provider: Diagnosis: Lasix 40MG Oral Tablet 08/06/2018 Provider: Diagnosis: Calan SR 240MG Oral Tablet Extended Release 08/06/2018 Provider: Diagnosis: Klor-Con 8MEQ Oral Tablet Extended Release 08/06/2018 Provider: Diagnosis: Past Medications on file Durezol 0.05% Ophthalmic Emulsion 09/05/2018 - 02/04/2019 Pr ovider: Carlos Green DO Diagnosis: Age-related nuclear cataract, left eye Day of surgery remove patch start one drop four times a day in the left eye BromSite 0.075% Ophthalmic Solution 09/05/2018 - 02/04/2019 Provider: Carlos Green DO Diagnosis: Age-related nuclear cataract, left eye Three days prior to surgery start one dr op two times a day in the left eye RUN CARD Besivance 0.6% Ophthalmic Suspension 09/05/2018 - 02/04/2019 Provider: Carlos Green DO Diagnosis: Age-related nuclear cataract, left eye Three days prior to surgery start one drop three times a day in the left eye Cosopt 22.3-6.8MG/ML Ophthalmic Solution 08/06/2018 - 2019 Provider: Diagnosis: 1 drop to each eye Latanoprost 0.005% Ophthalmic Solution 08/06/2018 - 09/17/19 Provider: Diagnosis: one drop each eye bid Medications Administered Includes: Administered Medications in patient's chartNo Administered Medications Recorded Vital Signs Includes: Vital Signs from 02/03/2020 through 02/02/2021No Vital Signs Recorded For Specified Dates Results Includes: Results from 02/03/2020 through 02/02/2021No Results Recorded For Specified Dates History of Present Illness History of Present Illness not supported for this document typeNo History of Present Illness Recorded Social History Description Last Updated Previous smoking history 09/14/2020 Tobacco non-user 09/13/2020 No tobacco use 12/11/2019 Not using drugs 12/11/2019 Smoking status : Former smoker 12/11/2019 Alcohol use - Occasional glass of wine 09/08/2019 Not a current smoker 10/17/2018 Procedures and Surgical History Includes: Procedures from 02/03/2020 through 02/02/2021 Procedures Code Diagnosis Performing Provider Service Location Service Date Intermediate Eye Exam Established Patient [address] Type 2 diabetes mellitus without complications, intermediate (current) use of oral hypoglycemic drugs, Primary open- angle glaucoma, bilateral, mild stage, Dry eye syndrome of bilateral lacrimal glands Carlos Villa MD [facility] 09/13/2020 Surgical History Last Updated History of extracapsular cataract extrac tion PCIOL OS with ECP and iStent inject and toric implant 09/11/[address] Green ~PCIOL OD with ECP and iStent inject and toric implant 10/09/[address] Green 09/17/2019 Surgical / procedural history Bunion Re moved 2005, Back Surgery 2005, Knee replacement 2005 and 201209/08/2019 Medical History Includes: Medical History in patient's chart Description Last Updated History of the retina was normal 10/30/2018 02/02/2021 History of diabetes mellitus Type II Dx : 1998 A1c: around [address] Marshall Glasgow in October FBS: 225 this morning 12/11/2019 Currently wearing eyeglasses - OTC Cheaters 0 History of fundoscopic exam through dilated pupils was performed 201709/08/2019 Reported medical history Iron Deficiency 09/08/2019 History of arthritis 02/04/2019 History of hyperlipidemia 02/04/2019 History of hypertension 02/04/2019 No recent change in medical history 02/04/2019 Family History Includes: Family History in patient's chart Description Last Updated Fraternal history of diabetes mellitus 12/11/2019 Paternal history of arthritis 12/11/2019 Paternal history of diabetes mellitus 12/11/2019 Paternal history of glaucoma 12/11/2019 Sororal history of arthritis 12/11/2019 Sororal history of cataract 12/11/2019 Sororal history of diabetes mellitus 12/11/2019 Sororal history of heart disease 12/11/2019 Review of Systems Review of Systems not supported for this document typeNo Review of Systems Recorded Mental Status Mental Status not supported for this document type Description Oriented to time, place, and person Functional Status Functional Status not supported for this document typeNo Functional Status Recorded Physical Exam Physical Exam not supported for this document typeNo Physical Exam Recorded Immunizations Includes: Immunizations in patient's chartNo Immunizations Recorded Allergies Includes: Active, inactive, and resolved AllergiesNo Known Allergies Encounters Includes: Encounters from 02/03/2020 through 02/02/2021 Encounter Provider Location Date Check-In Time Check-Out Time D iagnosis 9 Month Follow-Up Carlos Villa MD [facility] 12:28PM 1:05PM Glaucoma Open-angle Primary, Dry Eye Syndrome, Pseudophakia, Assessment of Taking Medication For Diabetes Long-term Use of Oral Hypoglycemics, Diabetes Mellitus Type 2 Without Complication Insurance Includes: Active Insurance Policies Plan Name Member ID Group # Subscriber Relationship Effective Da janette 1 - [employer] [id number] Leilani Martinez Advance Directives Includes: Current Advance DirectivesNo Advance Directives Recorded Health Concerns Includes: Active Health ConcernsNo Active Health Concerns Recorded Goals Includes: Active GoalsNo Active Goals Recorded Interventions Includes: Interventions for active GoalsNo Interventions Recorded Evaluations & Outcomes Includes: Evaluations & Outcomes for active GoalsNo Outcomes Recorded
--- OUTSIDE RECORDS SUMMARY | 2021-05-02 18:16 | CCD | Continuity of Care Document ---
Author Author Leilani MELVIN MD Organization Unknown Address [address] [place] [address], [facility] [address] [place] [address] Phone [phone] Care Team Providers Care Recoating Machine Operator Name Role Phone Marshall Glasgow MD [facility] [phone] Problems Active Problems Provider Date Essential hypertension [...] blood sugars Unknown History Medications Freestyle Paul 2/[place]/Flash Glucose M onitoring System 2Reader Device use [...] 6.3 Procedures Date Code Description Status 11/28/2020 48867 Office/Outpatient New High MDM 6 0-74 Minutes Completed 09/2020 [id number] Diabetic Foot Exam Completed Medical Devices Description [...] Melvin MD 03/21/2021 E78.2 Mixed hyperlipidemia Vaishnavi Melivn MD 03/21/2021 E83.52 Hypercalcemia Vaishnavi Melvin MD 03/21/2021 M10.00 Idiopathic gout, unspecified sit e Vaishnavi Melvin MD 11/28/2020 E11.65 Type 2 diabetes mellitus with hy perglycemia Vaishnavi Melvin MD 11/28/2020 E78.2 Mixed hyperlipidemia Vaishnavi Melvin MD 11/28/2020 E83.52 Hypercalcemia Vaishnavi Melvin MD 11/28/2020 M10.00 Idiopathic gout, unspecified sit e Vaishnavi Melvin MD Plan of Treatment 03/21/2021 - Vaishnavi Melvin MD* E11.65 Type 2 diabetes mellitus with hyperglycemia* Comments:* out of office A1c= 11.1% ( 10/20/2020)10/20/20, BUN 30, creatinine = 1.03, GFR = 55Calcium = 11.4Liver function normalLDL = 153, HDL = 52, triglycerides = 375, total cholesterol = 280TSH = 1.0925 OHD = 40Hemoglobin hematocrit = 13/40 meter downloaded: blood sugars > 300moved in with Son June 2019- not exercising and "my [id number] is a great cook, she makes great scones" current medication: Metformin HCL 1000 mg 1 by mouth twice daily , glipizide 5 mg 1 by mouth twice a day, Jardiance 10 mg, self DC'd due to yeast infectionsRecommendations:#1: Patient is limited in choice of medications because she does not have supplemental coverage.#2: She will ch remington on the cost of GLP-1 therapy. We showed her how to use the Ozempic pen#3: if she cannot Afford this medication we will have to put her on generic pioglitazone.#4: She needs to stop eating all the starches states that she is having an increase physical activity. . * Follow up:* 3 months- fish [...] she should not be taking colchicine long-term. This is a rescue medication. Advised to discontinue at this time. Functional Status Description No Information Available Mental Status Description No Information Available Referrals Description No Information Available
--- OUTSIDE RECORDS SUMMARY | 2021-05-02 18:16 | CCD ---
Author Author [facility] Organization [facility] Address Unknown Phone Unavailable Care Team Providers Care Data Operations Manager Name Role Phone Ezra B Vaishnavi ADAMS Unavailable Unavailable Fish, B Vaishnavi ADAMS Unavailable Unavailable Fish B Vaishnavi ADAMS Unavailable Unavailable Fish B Vaishnavi ADAMS Unavailable Unavailable Fish B Vaishnavi ADAMS Unavailable Unavailable Fish B Vaishnavi ADAMS Unavailable Unavailable Fish B Vaishnavi ADAMS Unavailable Unavailable Fish B Vaishnavi ADAMS Unavailable Unavailable Fish, B Vaishnavi ADAMS Unavailable Unavailable Fish B Vaishnavi ADAMS Unavailable Unavailable Fish B Vaishnavi ADAMS Unavailable Unavailable Fish B Vaishnavi ADAMS Unavailable Unavailable Fish B Vaishnavi ADAMS Unavailable Unavailable Fish, B Vaishnavi ADAMS Unavailable Unavailable Fish, B Vaishnavi ADAMS Unavailable Unavailable Fish, B Vaishnavi ADAMS Unavailable Unavailable Fish, B Vaishnavi ADAMS Unavailable Unavailable Fish, B Vaishnavi ADAMS Unavailable Unavailable Fish B Vaishnavi ADAMS Unavailable Unavailable Fish B Vaishnavi ADAMS Unavailable Unavailable Fish B Vaishnavi ADAMS Unavailable Unavailable Fish B Vaishnavi ADAMS Unavailable Unavailable Fish B Vaishnavi ADAMS Unavailable Unavailable Fish B aVishnavi ADAMS Unavailable Unavailable Fish, B Vaishnavi ADAMS Unavailable Unavailable Fish, B Vaishnavi ADAMS Unavailable Unavailable Fish B Vaishnavi ADAMS Unavailable Unavailable Fish B Vaishnavi ADAMS Unavailable Unavailable Fish, B Vaishnavi ADAMS Unavailable Unavailable Fish B Vaishnavi ADAMS Unavailable Unavailable Fish, B Vaishnavi ADAMS Unavailable Unavailable Fish, B Vaishnavi ADAMS Unavailable Unavailable Fish B Vaishnavi ADAMS Unavailable Unavailable Fish, B Vaishnavi ADAMS Unavailable Unavailable Fish, B Vaishnavi ADAMS Unavailable Unavailable Fish, B Vaishnavi ADAMS Unavailable Unavailable Fish, B Vaishnavi ADAMS Unavailable Unavailable Fish, B Vaishnavi ADAMS Unavailable Unavailable Fish, B Vaishnavi ADAMS Unavailable Unavailable Fish, B Vaishnavi ADAMS Unavailable Unavailable Fish, B Vaishnavi ADAMS Unavailable Unavailable Fish, B Vaishnavi ADAMS Unavailable Unavailable Fish, B Vaishnavi ADAMS Unavailable Unavailable Fish, B Vaishnavi ADAMS Unavailable Unavailable Fish, B Vaishnavi ADAMS Unavailable Unavailable Fish, B Vaishnavi ADAMS Unavailable Unavailable Fish, B Vaishnavi ADAMS Unavailable Unavailable Fish, B Vaishnavi ADAMS Unavailable Unavailable Fish, B Vaishnavi ADAMS Unavailable Unavailable Fish, B Vaishnavi ADAMS Unavailable Unavailable Fish, B Vaishnavi ADAMS Unavailable Unavailable Fish, B Vaishnavi ADAMS Unavailable Unavailable Fish, B Vaishnavi ADAMS Unavailable Unavailable Fish, B Vaishnavi ADAMS Unavailable Unavailable Fish, B Vaishnavi ADAMS Unavailable Unavailable Fish, B Vaishnavi ADAMS Unavailable Unavailable Fish, B Vaishnavi ADAMS Unavailable Unavailable Fish, B Vaishnavi ADAMS Unavailable Unavailable Fish, B Vaishnavi ADAMS Unavailable Unavailable Fish, B Vaishnavi ADAMS Unavailable Unavailable Fish, B Vaishnavi ADAMS Unavailable Unavailable Fish, B Vaishnavi ADAMS Unavailable Unavailable Fish, B Vaishnavi ADAMS Unavailable Unavailable Fish, B Vaishnavi ADAMS Unavailable Unavailable Fish, B Vaishnavi ADAMS Unavailable Unavailable ANTONELLA, A ANGELA DO Unavailable Unavailable ANTONELLA, A ANGELA DO Unavailable Unavailable ANTONELLA, A ANGELA DO Unavailable Unavailable ANTONELLA, A ANGELA DO Unavailable Unavailable ANTONELLA, A ANGELA DO Unavailable Unavailable ANTONELLA, A ANGELA DO Unavailable Unavailable ANTONELLA, A ANGELA DO Unavailable Unavailable ANTONELLA, A ANGELA DO Unavailable Unavailable ANTONELLA, A ANGELA DO Unavailable Unavailable ANTONELLA, A ANGELA DO Unavailable Unavailable ANTONELLA, A ANGELA DO Unavailable Unavailable ANTONELLA, A ANGELA DO Unavailable Unavailable ANTONELLA, A ANGELA DO Unavailable Unavailable ANTONELLA, A ANGELA DO Unavailable Unavailable ANTONELLA, A ANGELA DO Unavailable Unavailable ANTONELLA, A ANGELA DO Unavailable Unavailable ANTONELLA, A ANGELA DO Unavailable Unavailable ANTONELLA, A ANGELA DO Unavailable Unavailable ANTONELLA, A NAGELA DO Unavailable Unavailable ANTONELLA, A ANGELA DO Unavailable Unavailable ANTONELLA, A ANGELA DO Unavailable Unavailable ANTONELLA, A ANGELA DO Unavailable Unavailable Re-disclosure Warning The records that you are about to access may contain information from federally-assisted alcohol or drug abuse programs. If such information is present, then the following federally mandated warning applies: This information has been disclosed to you from records protected by federal confidentiality rules (42 CFR part 2). The federal rules prohibit you from making any further disclosure of this information unless further disclosure is expressly permitted by the written consent of the person to whom it pertains or as otherwise permitted by 42 CFR part 2. A general authorization for the release of medical or other information is NOT sufficient for this purpose. The Federal rules restrict any use of the information to criminally investigate or prosecute any alcohol or drug abuse patient.The records that you are about to access may contain highly sensitive health information, the redisclosure of which is protected by Article 27-F of the [facility] Public Health law. If you continue you may have access to information: Regarding HIV / AIDS; Provided by facilities licensed or operated by the [facility] Office of Mental Health; or Provided by the [facility] Office for People With Developmental Disabilities. If such information is present, then the following [facility] mandated warning applies: This information has been disclosed to you from confidential records which are protected by state law. State law prohibits you from making any further disclosure of this information without the specific written consent of the person to whom it pertains, or as otherwise permitted by law. Any unauthorized further disclosure in violation of state law may result in a fine or fdc sentence or both. A general authorization for the release of medical or other information is NOT sufficient authorization for further disc losure. Allergies and Adverse Reactions Type Description Substance Reaction Status Data Source(s ) Allergy to substance No Known Allergies No known allergies (situation ) [facility] (Edin Paul MD [facility]) Allergy to substance No Known Allergies No known allergies (situation ) [facility] (Edin Paul [facility]) Family History Family Member Name Family Member Gender Family Member Status Date o f Status Description Data Source(s) Unknown Unknown Problem [facility] ([facility] Unknown Male Problem [facility] ([facility]) Encounters Encounter Providers Location Date Indications Data Source(s ) Outpatient Attender: Vaishnavi Munguia MD Physical Therapy 03/21 10:00:00 AM EDT [facility] ([facility]) OFFICE OUTPATIENT NEW 60 MINUTES Attender: Vaishnavi Munguia MD Physi jorge Therapy 11/28/2020 01:00:00 PM EDT [facility] ([facility]) <td ID="encounterTypeDescriptionID0">9 M [facility] Follow-Up</td><td>Angela Green DO</td><td>Edin Kelley MD [facility]</td><td>09/13/2020</td><td>12:28PM</td><td>1:05PM</td><td><content ID="encounterDiagnosisID0-0">Glaucoma Open-angle Primary</content>, <content ID="encounterDiagnosisID0-1">Dry Eye Syndrome</content>, <content ID="encounterDiagnosisID0-2">Pseudophakia</content>, <content ID="encounterDiagnosisID0-3">Assessment of Taking Medication For Diabetes Long- term Use of Oral Hypoglycemics</content>, <content ID="encounterDiagnosisID0-4"> Diabetes Mellitus Type 2 Without Complication</content></td>Outpatient Attender: ANGELA Villa MD [facility] 09/13/2020 12:28:00 PM EDT - 09/13/2020 01:05:00 PM EDT PseudophakiaPseudophakiaDiabetes Mellitu s Type 2 Without ComplicationAssessment of Taking Medication For Diabetes Long-term Use of Oral HypoglycemicsDry Eye SyndromeGlaucoma Open-angle PrimaryDiabetes Mellitus Type 2 Without ComplicationAssessment of Taking Medication For Diabetes Long-term Use of Oral HypoglycemicsDry Eye SyndromeGlaucoma Open-angle Primary [facility] (Edin Paul MD [facility]) Pseudophakia Pseudophakia Diabetes Mellitus Type 2 Without Complic ation Assessment of Taking Medication For Diab etes Long-term Use of Oral Hypoglycemics Dry Eye Syndrome Glaucoma Open-angle Primary Diabetes Mellitus Type 2 Without Complic ation Assessment of Taking Medication For Diab etes Long-term Use of Oral Hypoglycemics Dry Eye Syndrome Glaucoma Open-angle Primary Immunizations Vaccine Date Status Description Data Source(s) COVID-19 VACC, MRNA(PFIZER)/PF 03/13/2021 12:00:00 AM EDT completed [facility] COVID-19 VACCINE Pfizer 03/13/2021 12:00:00 AM EDT completed [facility] Vaccine Series Complete: YESThis Data wa s Submitted to [facility]. COVID-19 VACCINE Pfizer 08/06/2020 12:00:00 AM EST completed [facility] Vaccine Series Complete: YESThis Data wa s Submitted to [facility] [employer]. COVID-19 VACCINE Pfizer 07/16/2020 12:00:00 AM EST completed [facility] Vaccine Series Complete: NOThis Data was Submitted to [facility] [employer]. INFLUENZA VACCINE QUADRIVALENT 2019- (65 YR UP)/MF59 C.1/PF 03/09/2020 12:00:00 AM EDT completed [facility] PNEUMOCOCCAL 13-VALENT CONJUGATE VACCINE (DIPHTHERIA C RM)/PF 03/09/2020 12:00:00 AM EDT completed [facility] Medications Medication Brand Name Start Date Product Form Dose Route Admi nistrative Instructions Pharmacy Instructions Status Indications Reaction Description Data Source(s) 240 mcg/0.7 mL 03/02/2021 12:00:00 AM EDT syringe 0 USE DIRECTED USE DIRECTED SOLD: 03/02/2021 [facility] Freestyle Paul 2/Randolph/Flash Glucose Monitoring System 01/27/2021 12:00:00 AM EDT completed [facility] ([facility]) 32 gauge x 1/6" 01/15/2021 12:00:00 AM EDT needle 12 USE DIRECTED WITH OZEMPIC ONCE WEEKLY USE DIRECTED WITH OZEMPIC ONCE WEEKLY SOLD: 01/23/2021 [facility] Novofine Plus 01/13/2021 12:00:00 AM EDT acti ve [facility] ([facility]) 0.25 mg or 0.5 mg(2 mg/1.5 mL) 11/29/2020 12:00:00 AM EDT pe n injector 1 INJECT 0.5MG WEEKLY INJECT 0.5MG WEEKLY SOLD: 12/09/2020 [facility] Ozempic (0.25 Or 0.5 MG/Dose) Ozempic (0.25 Or 0.5 MG/Dose) 11/28/2020 12:00:00 AM EDT active [facility] ([facility]) Allopurinol 300 MG Oral Tablet Allopurinol 300 MG Oral Table t 09/13/2020 12:00:00 AM EDT 1 active allopuri nol 300 MG Oral Tablet [place] (Edin Paul MD [facility]) Clindamycin 150 MG Oral Capsule CLINDAMYCIN HCL 08/31/2020 12:00 :00 AM EDT capsule 30 TAKE ONE CAPSULE BY MOUTH EVERY 8 HOURS UNTIL GONE TAKE ONE CAPSULE BY MOUTH EVERY 8 HOURS UNTIL GONE SOLD: 08/31/2020 [facility] 500 mg 08/29/2020 12:00:00 AM EDT capsule 40 TAKE ONE CAPSULE BY MOUTH FOUR TIMES A DAY TAKE ONE CAPSULE BY MOUTH FOUR TIMES A DAY SOLD: 08/30/2020 [facility] Cephalexin 500 MG Oral Capsule CEPHALEXIN 05/04/2020 12:00:00 AM EST capsule 54 TAKE ONE CAPSULE BY MOUTH FOUR TIMES A DAY TAKE ONE CA PSULE BY MOUTH FOUR TIMES A DAY SOLD: 05/04/2020 [facility] Cephalexin 500 MG Oral Capsule CEPHALEXIN 04/15/2020 12:00:00 AM EDT capsule 54 TAKE ONE CAPSULE BY MOUTH FOUR TIMES A DAY TAKE ONE CA PSULE BY MOUTH FOUR TIMES A DAY SOLD: 04/16/2020 [facility] 0.6 mg 04/12/2020 12:00:00 AM EDT tablet 90 TAKE ONE TABLET BY MOUTH EVERY DAY TAKE ONE TABLET BY MOUTH EVERY DAY SOLD: 04/12/2020 [facility] 125 mg/2 mL 04/12/2020 12:00:00 AM EDT [place] 4 INJECT 125MG INTRAMUSCULARLY ONCE DAILY INJECT 125MG INTRAMUSCULARLY ONCE DAILY SOLD: 04/12/2020 [facility] Ceftriaxone 1000 MG Injection CEFTRIAXONE SODIUM 04/12/2020 12:0 0:00 AM EDT [place] 4 INJECT 1G INTRAMUSCULARLY ONCE D AILY INJECT 1G INTRAMUSCULARLY ONCE DAILY SOLD: 04/12/2020 [facility] 300 mg 04/12/2020 12:00:00 AM EDT tablet 90 TAKE ONE TABLET BY MOUTH EVERY DAY TAKE ONE TABLET BY MOUTH EVERY DAY SOLD: 04/12/2020 [facility] Lidocaine Hydrochloride 10 MG/ML Injectable Solution LIDOCAI NE HCL 04/12/2020 12:00:00 AM EDT solution 20 INJECT DIRECTED INJECT DI RECTED SOLD: 04/12/2020 [facility] 4 mg 04/04/2020 12:00:00 AM EDT tablets,dose pack 21 TAKE DIRECTED TAKE DIRECTED SOLD: 04/04/2020 [facility] 0.6 mg 04/04/2020 12:00:00 AM EDT tablet 20 TAKE ONE TABLET BY MOUTH TWICE A DAY TAKE ONE TABLET BY MOUTH TWICE A DAY SOLD: 04/04/2020 [facility] 50 mg 03/28/2020 12:00:00 AM EDT capsule 60 TAKE ONE CAPSULE BY MOUTH TWICE A DAY WITH FOOD TAKE ONE CAPSULE BY MOUTH TWICE A DAY WITH FOOD SOLD: 03/28/2020 [facility] 100 mg 03/26/2020 12:00:00 AM EDT tablet 14 TAKE ONE TABLET BY MOUTH TWICE A DAY FOR 7 DAYS TAKE ONE TABLET BY MOUTH TWICE A DAY FOR 7 DAYS SOLD: 2019 [facility] Cephalexin 500 MG Oral Capsule CEPHALEXIN 03/18/2020 12:00:00 AM EDT capsule 21 TAKE ONE CAPSULE BY MOUTH THREE TIMES A DAY FOR 7 DAYS TAKE ONE CAPSULE BY MOUTH THREE TIMES A DAY FOR 7 DAYS SOLD: 03/18/2020 [facility] Insurance Providers Payer name Policy type / Coverage type Policy ID Covered green party ID Covered green party's relationship to more Policy More Plan Information MEDICARE [id number] SP [id number] A MEDICARE COMPLETE [id number] SP [id number] ANS-Medicare Part B [id number] ANS-Medicare Part B [id number] [facility]/Medicare Commercial [id number] Self [id number] MEDICARE COMPLETE [id number] [facility] Medicare Commercial [id number] Self [id number] [facility]/Medicare Commercial .[id number] Self [facility]/Medicare Commercial [id number] Self [employer] [id number] SP [id number] MEDICARE COMPLETE [id number] SP [id number] Problems, Conditions, and Diagnoses Code Display Name Description Problem Type Effective Dates Data Source(s) [id number] Pure hypercholesterolemia Pure hypercholesterolemia Pr oblem 11/24/2020 12:00:00 AM EDT [facility] ([facility]) [id number] Essential hypertension Essential hypertension Problem 11/24/2020 12:00:00 AM EDT [facility] ([facility]) Surgeries/Procedures Procedure Description Date Indications Data Source(s) OFFICE OUTPATIENT VISIT 25 MINUTES 03/21/2021 12:00:00 AM EDT [facility] ([facility]) OFFICE OUTPATIENT NEW 60 MINUTES 11/28/2020 12:00:00 A M EDT [facility] ([facility]) Diabetic Foot Exam 09/15/2020 12:00:00 AM EDT [facility] ([facility]) Intermediate Eye Exam Established Patient Intermediate Eye Exam Established Patient 09/13/2020 12:00:00 AM EDT [place] (Thang Paul MD [facility]) Results ID Date Data Source [id number] 03/21/2021 10:08:00 AM EDT [facility] ([facility]) Name Value Range Interpretation Code Description Data Ewelina rce(s) Supporting Document(s) Glucose [Mass/volume] in Serum or Plasma 152 [facility] ([facility]) Hemoglobin A1c/Hemoglobin.total in Blood 6.3 [facility] ([facility]) Procedure Social History Code Duration Value Status Description Data Source(s ) Smoking 02/02/2021 03:16:58 PM EDT Ex-smoker (finding) complet ed Ex-smoker (finding) [place] (Edin Paul MD [facility]) Smoking 09/14/2020 10:54:58 AM EDT Ex-smoker (finding) complet ed Ex-smoker (finding) [place] (Edin Paul MD [facility]) Vital Signs ID Date Data Source UNK Name Value Range Interpretation Code Description Data Source(s) Systolic blood pressure 124 mm[Hg] 124 mm[Hg] [facility] Diastolic blood pressure 70 mm[Hg] 70 mm[Hg] [facility] ([facility]) Heart rate 81 /min 81 /min [facility] ([facility]) Body weight 204.12 [lb_av] 204.12 [lb_av] [facility] ([facility]) Oxygen saturation in Arterial blood by Pulse oximetry 98 % 98 % [facility] ([facility]) Diastolic blood pressure 62 mm[Hg] 62 mm[Hg] [facility] ([facility]) Heart rate 63 /min 63 /min [facility] ([facility]) Systolic blood pressure 132 mm[Hg] 132 mm[Hg] M [facility] ([facility]) Body temperature 96.5 [degF] 96.5 [degF] [facility] Body height 62.6 [in_i] 62.6 [in_i] [facility] 5'2.60" Body weight 211.00 [lb_av] 211.00 [lb_av] [facility] ([facility]) Body mass index (BMI) [Ratio] 37.9 kg/m2 37.9 k g/m2 [facility] Oxygen saturation in Arterial blood by Pulse oximetry 98 % 98 % [facility]
[2021-05-02] MEDS ORDERED: LOPI600T PO ×2 (18:33→22:23)
[2021-05-02] MEDS ORDERED: OZEM2INJ (18:33)
[2021-05-02] MEDS ORDERED: CALA240T PO (18:33)
[2021-05-02 19:41] LABS: BASO % 0.1 % (0.0-1.0); HEMATOCRIT 30.7 % (36.0-47.0); HEMOGLOBIN 10.3 g/dl (12.0-15.5); LYMPH % 6.6 % (24.0-44.0); MEAN CORPUSCULAR HEMOGLOBIN 31.3 pg (27.0-33.0); MEAN CORPUSCULAR HGB CONC 33.6 g/dl (32.0-36.5); MEAN CORPUSCULAR VOLUME 93.3 fl (80.0-96.0); MONO # 1.5 10^3/uL (0.0-0.8); MONO % 9.7 % (2.0-8.0); NEUTROPHILS # 12.7 10^3/uL (1.5-8.5); NEUTROPHILS % 82.9 % (36.0-66.0); PLATELET COUNT, AUTOMATED 151 10^3/uL (150-450); RED BLOOD COUNT 3.29 10^6/uL (4.00-5.40); WHITE BLOOD COUNT 15.3 10^3/uL (4.0-10.0)
[2021-05-02 19:56] LABS: ALBUMIN 3.2 GM/DL (3.2-5.2); BILIRUBIN,DIRECT 0.4 MG/DL (0.0-0.2); BILIRUBIN,TOTAL 1.2 MG/DL (0.2-1.0); CALCIUM LEVEL 9.6 MG/DL (8.8-10.2); CREATININE FOR GFR 5.04 MG/DL (0.55-1.30); GLOMERULAR FILTRATION RATE 8.9 (>39); POTASSIUM SERUM 5.3 MEQ/L (3.5-5.1); TOTAL PROTEIN 7.1 GM/DL (6.4-8.2)
[2021-05-02 19:57] LABS: CK-MB VALUE MASS 2.7 NG/ML (<3.6); MB/CK RELATIVE INDEX 0.14 (< OR =4); TROPONIN I 0.07 NG/ML (< 0.10)
[2021-05-02 19:59] LABS: ABG BASE EXCESS -6.7 (-2.0-2.0); ABG HCO3 17.6 MEQ/L (22.0-26.0); ABG PARTIAL PRESSURE CO2 30.9 mmHg (35.0-45.0); ABG PARTIAL PRESSURE O2 72.3 mmHg (75.0-100.0); ABG STANDARD HCO3 18.9 MEQ/L (22.0-26.0); ABG TOTAL CO2 18.5 MEQ/L (23.0-31.0); ABG pH (ARTERIAL) 7.373 UNITS (7.350-7.450)
--- NOTE | 2021-05-02 19:59 | REP ---
INDICATION: SEPSIS/SHOCK. COMPARISON: PA and lateral chest, 10/14/2019. TECHNIQUE: Upright AP portable chest image was obtained. Possible airspace disease in the lingula. There is cardiomegaly without congestive heart failure. The upper abdominal bowel gas pattern is normal. There are no bony abnormalities. FINDINGS: Possible airspace disease in the lingula. There is cardiomegaly without congestive heart failure. The upper abdominal bowel gas pattern is normal. There are no bony abnormalities. IMPRESSION: Lingular airspace disease consistent with pneumonia or atelectasis. <Electronically signed by Chinmay Malone > 05/02/211954
[2021-05-02] MEDS ORDERED: NS 2,780 ML in IV 1 EA IV ONE (20:15)
[2021-05-02] MEDS ORDERED: CEFEPIME HCL 2 GM in D5W MINI-BAG PLUS 50 ML IV ONE (20:15)
--- OUTSIDE RECORDS SUMMARY | 2021-05-02 20:39 | CCD ---
Author Author [facility] Organization [facility] Address Unknown Phone Unavailable Care Team Providers Care Zipper Lining Folder Name Role Phone Ezra B Vaishnavi ADAMS [...] B Vaishnavi ADAMS Unavailable Unavailable Fish, B aVishnavi ADAMS Unavailable Unavailable Fish, B [...] is protected by Article 27-F of the [facility] Public Health law. If you continue you may have access to information: Regarding HIV / AIDS; Provided by facilities licensed or operated by the [facility] Office of Mental Health; or Provided by the [facility] Office for People With Developmental Disabilities. If such information is present, then the following [facility] mandated warning applies: This information has been [...] law may result in a fine or skilled nursing sentence or both. A general authorization for the release of medical or other information is NOT sufficient authorization for further disc losure. Allergies and Adverse Reactions Type Description Substance Reaction Status Data Source(s ) Allergy to substance No Known Allergies No known allergies (situation ) [facility] (Edni Paul MD [facility]) Allergy to substance No Known Allergies No known allergies (situation ) [facility] (Edin Paul MD [facility]) Family History Family Member Name Family Member Gender Family Member Status Date o f Status Description Data Source(s) Unknown Unknown Problem [facility] ([facility]) Unknown Male Problem [facility] ([facility]) Encounters Encounter Providers Location Date Indications Data Source(s ) Outpatient Attender: Vaishnavi Munguia MD Physical Therapy 03/21 10:00:00 AM EDT [facility] ([facility]) OFFICE OUTPATIENT NEW 60 MINUTES Attender: Vaishnavi Munguia MD Physi jorge Therapy 11/28/2020 01:00:00 PM EDT [facility] ([facility]) <td ID="encounterTypeDescriptionID0">[address] [facility] Follow-Up</td><td>Angela Green DO</td><td>Edin Kelley MD [facility]</td><td>09/13/2020</td><td>12:28PM</td><td>1:05PM</td><td><content ID="encounterDiagnosisID0-0">Glaucoma Open-angle Primary</content>, <content ID="encounterDiagnosisID0-1">Dry Eye Syndrome</content>, <content ID="encounterDiagnosisID0-2">Pseudophakia</content>, <content ID="encounterDiagnosisID0-3">Assessment of Taking Medication For Diabetes Long- term Use of Oral Hypoglycemics</content>, <content ID="encounterDiagnosisID0-4"> Diabetes Mellitus Type 2 Without Complication</content></td>Outpatient Attender: ANGELA Villa MD [facility] 09/13/2020 12:28:00 PM EDT - 09/13/2020 01:05:00 PM EDT PseudophakiaPseudophakiaDiabetes Mellitu s Type 2 Without ComplicationAssessment of Taking Medication For Diabetes Long-term Use of Oral HypoglycemicsDry Eye SyndromeGlaucoma Open-angle PrimaryDiabetes Mellitus Type 2 Without ComplicationAssessment of Taking Medication For Diabetes Long-term Use of Oral HypoglycemicsDry Eye SyndromeGlaucoma Open-angle Primary [facility] (Edin Paul MD [facility]) Pseudophakia Pseudophakia Diabetes Mellitus Type 2 [...] Complete: YESThis Data wa s Submitted to [facility]. COVID-19 VACCINE Pfizer 08/06/2020 12:00:00 AM EST completed [facility] Vaccine Series Complete: YESThis Data wa s Submitted to [facility]. COVID-19 VACCINE Pfizer 07/16/2020 12:00:00 AM EST completed [facility] Vaccine Series Complete: NOThis Data was Submitted to [facility]. INFLUENZA VACCINE QUADRIVALENT 2019- (65 YR UP)/MF59 [...] SOLD: 03/02/2021 [facility] Paul 2/[place]/Flash Glucose Monitoring System 01/27/2021 12:00:00 AM EDT completed [facility] ([facility]) 32 gauge x 1/6" 01/15/2021 12:00:00 AM EDT needle 12 USE DIRECTED WITH OZEMPIC ONCE WEEKLY USE DIRECTED WITH OZEMPIC ONCE WEEKLY SOLD: 01/23/2021 [facility] Novofine Plus 01/13/2021 12:00:00 AM EDT acti ve [facility] ([facility]) 0.25 mg or 0.5 mg(2 [...] active allopuri nol 300 MG Oral Tablet [facility] (Edin Paul MD [facility]) Clindamycin 150 MG Oral Capsule CLINDAMYCIN [...] type / Coverage type Policy ID Covered libertarian ID Covered libertarian's relationship to more Policy More Plan Information MEDICARE [id number] SP [id number] A MEDICARE COMPLETE [id number] SP [id number] ANS-Medicare Part B [id number] ANS-Medicare Part B [id number] [facility]/Medicare Commercial [id number] Self [id number] MEDICARE COMPLETE [id number] [facility] Medicare Commercial [id number] Self [id number] [facility]/Medicare Commercial .[id number] Self [facility]/Medicare Commercial [id number] Self [employer] [id number] SP [id number] MEDICARE COMPLETE [id number] SP [id number] Problems, Conditions, and Diagnoses Code Display Name Description Problem Type Effective Dates Data Source(s) 290374500 Pure hypercholesterolemia Pure hypercholesterolemia Pr oblem 11/24/2020 12:00:00 AM EDT [facility]) [id number] Essential hypertension Essential hypertension Problem 11/24/2020 12:00:00 AM EDT [facility] ([facility]) Surgeries/Procedures Procedure Description Date Indications Data Source(s) OFFICE OUTPATIENT VISIT 25 MINUTES 03/21/2021 12:00:00 AM EDT [facility] ([facility]) OFFICE OUTPATIENT NEW 60 MINUTES 11/28/2020 12:00:00 A M EDT [facility] ([facility]) Diabetic Foot Exam 09/15/2020 12:00:00 AM EDT [facility] ([facility]) Intermediate Eye Exam Established Patient Intermediate Eye Exam Established Patient 09/13/2020 12:00:00 AM EDT [facility] (Thang Paul MD [facility]) Results ID Date Data Source [id number] 03/21/2021 10:08:00 AM EDT [facility] ([facility]) Name Value Range Interpretation Code Description Data Ewelina rce(s) Supporting Document(s) Glucose [Mass/volume] in Serum or Plasma 152 [facility] ([facility]) Hemoglobin A1c/Hemoglobin.total in Blood 6.3 [facility] ([facility]) Procedure Social History Code Duration Value Status Description Data Source(s ) Smoking 02/02/2021 03:16:58 PM EDT Ex-smoker (finding) complet ed Ex-smoker (finding) [facility] (Edin Paul MD [facility]) Smoking 09/14/2020 10:54:58 AM EDT Ex-smoker (finding) complet ed Ex-smoker (finding) [facility] (Edin Paul MD [facility]) Vital Signs ID Date Data Source UNK Name Value Range Interpretation Code Description Data Source(s) Systolic blood pressure 124 mm[Hg] 124 mm[Hg] M [facility] ([facility]) Body weight 204.12 [lb_av] 204.12 [lb_av] [facility] ([facility]) Diastolic blood pressure 70 mm[Hg] 70 mm[Hg] [facility] ([facility]) Oxygen saturation in Arterial blood by Pulse oximetry 98 % 98 % [facility] ([facility]) Heart rate 81 /min 81 /min [facility] ([facility] Systolic blood pressure 132 mm[Hg] 132 mm[Hg] M [facility] ([facility] ) Diastolic blood pressure 62 mm[Hg] 62 mm[Hg] [facility] ([facility]) Body temperature 96.5 [degF] 96.5 [degF] [facility] ([facility]) Body height 62.6 [in_i] 62.6 [in_i] [facility] ([facility] 5'2.60" Body weight 211.00 [lb_av] 211.00 [lb_av] [facility] T ([facility]) Body mass index (BMI) [Ratio] 37.9 kg/m2 37.9 k g/m2 [facility] ([facility]) Oxygen saturation in Arterial blood by Pulse oximetry 98 % 98 % [facility] ([facility] Heart rate 63 /min 63 /min [facility] ([facility] )
[2021-05-02 20:56] LABS: INR 1.09; PROTHROMBIN TIME 14.5 SECONDS (12.7-14.5)
[2021-05-02 20:57] LABS: PARTIAL THROMBOPLASTIN TIME 38.8 SECONDS (25.9-37.0)
[2021-05-02 21:29] LABS: RSV AMPLIFICATION NEGATIVE (NEGATIVE)
[2021-05-02] MEDS ORDERED: DEXTROSE 50% 50 ML SYRINGE IV PRN (22:10)
[2021-05-02] MEDS ORDERED: GLUCOSE 4GM CHEW TABLET PO PRN (22:10)
[2021-05-02] MEDS ORDERED: GLUCAGON INJ 1MG VIAL SC PRN (22:10)
--- NOTE | 2021-05-02 22:13 | HPEPDOC ---
[facility] Medical History & Physical Date of Admission May 02, 2021 Date of Service: May 02, 2021 Primary Care Physician: David Glasgow Attending Physician: ANTONIA GALVEZ MD History and Physical TIME OF SERVICE: 1050PM CHIEF COMPLAINT: muscle aches HISTORY OF PRESENT ILLNESS: On Sat Apr 29, Ms. Mejia has had n/v/d muscle aches and chills. Her symptoms improved on Saturday, but she had a fall and hit her head on the bathroom floor. She continues to have a poor appetite, has only been drinking fluids. She has continued to take all of her medications and took additional doses of Lasix because she noticed that she was not urinating. Today she came to the hospital c/o muscle aches. REVIEW OF SYSTEMS: 10-point review of systems negative except as listed in HPI PAST MEDICAL/ SURGICAL HISTORY: IDDM, Essential HTN, DLP, CKD 3, Class 1 obesity, CKD 3, Chronic Anemia, Hiatal Hernia, Right total knee surgery, Bunionectomy, Tubal ligation, Hemorrhoidectomy, Tonsillectomy, Back Surgery, Bilateral Cataract surgery SOCIAL HISTORY: Former smoker 1 PPD for 30 yrs / Alcohol occasionally FAMILY HISTORY: Father DM, CAD ALLERGIES: Please see below. HOME MEDICATIONS: Please see below. PHYSICAL EXAMINATION: Vital Signs Date Time Temp Pulse Resp B/P (MAP) Pulse Ox O2 Delivery O2 Flow Rate FiO2 05/02/21 18:04 97.1 58 19 86/53 (64) 97 Room Air 05/02/21 23:00 2.0 GENERAL APPEARANCE: well nourished and developed / NAD HEENT: EOMI CARDIOVASCULAR: RRR/NMRG LUNGS: CTAB on RA MUSCULOSKELETAL: NCAT / RAGINI x 4 INTEGUMENT: not flushed, pale or diaphoretic NEUROLOGICAL: CN 2-12 grossly intact /speech not dysarthric PSYCHIATRIC: A&Ox 3 /able to understand and follow all commands LABORATORY DATA: IMAGING: Chest xray IMPRESSION: Lingular airspace disease consistent with pneumonia or atelectasis. MICROBIOLOGY: COVID neg / blood Cx pending ASSESSMENT: is a 75 yr old F w IDDM, Essential HTN, DLP, CKD 3, CKD 3, Chronic Anemia & obesity who is admitted for Hypotension, YAZAN on CKD 3, Rhabdomyolysis & Hyponatremia. PLAN: 1 Hypotension -Possibly due to n/v/d, poor PO intake & excessive diuretic use, but we will also need to r/o an occult infection - At her baseline she has a hx of HTN Plan: admit to PCU / c/w IVF/ c/w Zosyn / add Vancomycin pending MRSA results / f/u UA (ordered in ER but sample not yet collected) / f/u blood cx / hold oral iron until acute infection has been r/o / hold anti-HTN meds 2 YAZAN on CKD3 -2/2 N/V/D, multiple medications, poor PO intake and rhabdo Plan: f/u Is and Os / li / IVF / renal diet / f/u U cr, U protein, renal US / hold Lasix, losartan & Protonix / the day time team may consider placing a Nephrology consult 3 Rhabdomyolysis Plan: f/u urine myoglobin, Phosphate and Uric Acid / IVF 4 Hyponatremia -likely 2/2 lasix & losartan & vomiting -she received 2.8L bolus of IVF in the ER Plan: neurochecks / li for Is and Os / f/u serum Osmo, U Osmol and Terence / hold diuretic / f/u serial Na 5 Hepatocellular Transaminitis Plan: f/u liver US, Hep B and C / trend LFTs 6 Chronic Lung Scaring -Per the pt reported that she has been told that she has a chronic lung scaring and he doubts the findings on Xray represent PNA Plan: monitor for symptoms 7 Myalgias 2/2 acute illness +/- rhabdomyolsis +/- statin Plan: hold statin which can cause myalgias in the elderly / treat Rhabdo 8 NIDDM Plan: diabetic diet / f/u accuchecks Q6H until her PO intake has improved / hypoglycemia protocol / sliding scale insulin / hold Glipizide & Metformin / f/u A1C 9 Chronic Anemia Plan: f/u CBC /iron on hold pending work up for infection 12 Class 1 obesity -complicates care DVT px w Heparin Dispo: home after at least 2 midnights stay LATE ENTRY 305AM # Possible Acute cholecystitis -Abdominal US FINDINGS: Liver: Normal. No mass. Gallbladder: Gallstones, gallbladder wall thickening measuring 7 mm, and gallbladder distension, 12 cm in greatest diameter.. Evidence for acute cholecystitis. Common bile duct: Normal common biliary duct diameter of 6 mm. Pancreas: Visualized pancreas is unremarkable. Right kidney: Normal. No mass. No hydronephrosis. Left kidney: Normal. No mass. No hydronephrosis. Spleen: Unremarkable 10 cm spleen. Aorta: Normal caliber aorta measuring up to 2.6 cm. Inferior vena cava: Normal. Intraperitoneal space: Small amount of fluid located within the right upper quadrant. IMPRESSION: Small amount of fluid located within the right upper lima drant. Gallstones, gallbladder wall thickening measuring 7 mm, and gallbladder distension, 12 cm in greatest diameter.. Evidence for acute cholecystitis. Plan: c/w Zosyn and add Metronidazole / NPO w IVF / will ask the day time team to consult the Surgeon executive compensation analyst #Oliguria -Per d/w RN at 305AM despite li and over 3L of fluids the patient has only produced 30ml of urine Plan: will consult Nephro #Metabolic Acidosis -possibly 2/2 RTA ? -lactic acidosis has resolved Plan: consult Nephro to discuss Bicarb drip #Hypoxemia Plan: f/u VBG / continuous pulse ox / supplemental O2 / she may need a sleep study to r/o NADIR LATE ENTRY 315AM Per d/w its ok to c/w NS for now; she will see the patient in the morning Home Medications Scheduled (Slow Fe) 142 Mg Tab, 2 TAB PO QHS Aspirin (Aspirin EC) 81 Mg Tab, 81 MG PO DAILY Atorvastatin Calcium (Lipitor) 80 Mg Tab, 80 MG PO QHS Carvedilol (Coreg) 12.5 Mg Tab, 12.5 MG PO BID Ferrous Sulfate (Ferrous Sulfate) 325 Mg Tablet, 650 MG PO DAILY Fluticasone Propionate (Flonase Allergy Relief) 50 Mcg/Act Spr, 2 SPRAYS NA DAILY Furosemide (Lasix) 40 Mg Tab, 40 MG PO DAILY Gemfibrozil (Lopid) 600 Mg Tablet, 600 MG PO BID Glipizide (Glipizide) 5 Mg Tab, 5 MG PO BID Loratadine (Loratadine) 10 Mg Tablet, 10 MG PO QHS Losartan Potassium (Losartan Potassium) 100 Mg Tab, 100 MG PO QHS Metformin HCl (Metformin HCl) 1,000 Mg Tab, 1,000 MG PO BID Pantoprazole Sodium (Protonix) 40 Mg Tab, 40 MG PO DAILY Potassium Chloride (Potassium Chloride) 8 Meq Tablet.er, 8 MEQ PO QHS Semaglutide (Ozempic) 0.25 Mg/0.2 Ml Pen.injctr, 0.5 MG SC QWEEK EVERY SATURDAY @ 1200 Verapamil HCl (Verapamil ER) 240 Mg Tablet.er, 240 MG PO DAILY allopurinoL (allopurinoL) 300 Mg Tablet, 300 MG PO QHS Scheduled PRN Carboxymethylcellulose Sodium (Refresh Tears) 15 Ml Drops, 1 DROP OU QID PRN for DRY EYES Allergies Coded Allergies: No Known Allergies (Verified , 09/04/18) A-FIB/CHADSVASC A-FIB History Current/History of A-Fib/PAF?: No Current PO Anticoag Therapy: No ANTONIA GALVEZ MD May 02, 2021 22:13
[2021-05-02] MEDS ORDERED: POTA1TAB21 PO (22:23)
[2021-05-02] MEDS ORDERED: REFR0.5D8 OU (22:23)
[2021-05-02] MEDS ORDERED: VERA240T65 PO (22:23)
[2021-05-02] MEDS ORDERED: OZEM2INJ SC (22:23)
[2021-05-02] MEDS ORDERED: ALLO300T2 PO (22:23)
[2021-05-02] MEDS ORDERED: FERR1TAB8 PO (22:23)
[2021-05-02] MEDS ORDERED: LORA-930 PO (22:23)
[2021-05-02] MEDS ORDERED: HOME MED LIST COMPLETE! XX SCH (22:25)
--- OUTSIDE RECORDS SUMMARY | 2021-05-02 22:29 | CCD ---
Author Author [facility] Organization [facility] Address Unknown Phone Unavailable Care Team Providers Care Medical Staff Manager Name Role Phone Ezra B Vaishnavi [...] is protected by Article 27-F of the [facility] Public Health law. If you continue you may have access to information: Regarding HIV / AIDS; Provided by facilities licensed or operated by the [facility] Office of Mental Health; or Provided by the [facility] Office for People With Developmental Disabilities. If such information is present, then the following [facility] mandated warning applies: This information [...] law may result in a fine or snf sentence or both. A general authorization for the release of medical or other information is NOT sufficient authorization for further disc losure. Allergies and Adverse Reactions Type Description Substance Reaction Status Data Source(s ) Allergy to substance No Known Allergies No known allergies (situation ) [facility] (Edin Paul MD [facility]) Allergy to substance No Known Allergies No known allergies (situation ) [facility] (Edin Paul MD [facility]) Family History Family Member Name Family Member Gender Family Member Status Date o f Status Description Data Source(s) Unknown Unknown Problem [facility] ([facility]) Unknown Male Problem [facility] Encounters Encounter Providers Location Date Indications Data Source(s ) Outpatient Attender: Vaishnavi Munguia MD Physical Therapy 03/21 10:00:00 AM EDT [facility] ([facility]) OFFICE OUTPATIENT NEW 60 MINUTES Attender: Vaishnavi Munguia MD Physi jorge Therapy 11/28/2020 01:00:00 PM EDT [facility] ([facility]) Outpatient<td ID="encounterTypeDescripti onID0">9 Month Follow-Up</td><td>Angela Green DO</td><td>Edin Kelley MD [facility]</td><td>09/13/2020</td><td>12:28PM</td><td>1:05PM</td><td><content ID="encounterDiagnosisID0-0">Glaucoma Open-angle Primary</content>, <content ID="encounterDiagnosisID0-1">Dry Eye Syndrome</content>, <content ID="encounterDiagnosisID0-2">Pseudophakia</content>, <content ID="encounterDiagnosisID0-3">Assessment of Taking Medication For Diabetes Long- term Use of Oral Hypoglycemics</content>, <content ID="encounterDiagnosisID0-4"> Diabetes Mellitus Type 2 Without Complication</content></td> Attender: ANGLEA Villa MD [facility] 09/13/2020 12:28:00 PM EDT - 09/13/2020 01:05:00 PM EDT PseudophakiaPseudophakiaDiabetes Mellitu s Type 2 Without ComplicationAssessment of Taking Medication For Diabetes Long-term Use of Oral HypoglycemicsDry Eye SyndromeGlaucoma Open-angle PrimaryDiabetes Mellitus Type 2 Without ComplicationAssessment of Taking Medication For Diabetes Long-term Use of Oral HypoglycemicsDry Eye SyndromeGlaucoma Open-angle Primary [facility] (Edin Paul MD [facility]) Pseudophakia Pseudophakia Diabetes Mellitus Type 2 Without [...] Complete: YESThis Data wa s Submitted to [facility] [employer]. COVID-19 VACCINE Pfizer 08/06/2020 12:00:00 AM EST completed [facility] Vaccine Series Complete: YESThis Data wa s Submitted to [facility] [employer]. COVID-19 VACCINE Pfizer 07/16/2020 12:00:00 AM EST completed [facility] Vaccine Series Complete: NOThis Data was Submitted to [facility] [employer]. INFLUENZA VACCINE QUADRIVALENT 2019- (65 YR UP)/MF59 [...] SOLD: 03/02/2021 [facility] Paul 2/[place]/Flash Glucose Monitoring System 01/27/2021 12:00:00 AM EDT completed [facility] ([facility]) 32 gauge x 1/6" 01/15/2021 12:00:00 AM EDT needle 12 USE DIRECTED WITH OZEMPIC ONCE WEEKLY USE DIRECTED WITH OZEMPIC ONCE WEEKLY SOLD: 01/23/2021 [facility] Novofine Plus 01/13/2021 12:00:00 AM EDT acti ve [facility] ([facility]) 0.25 mg or 0.5 mg(2 mg/1.5 mL) 11/29/2020 12:00:00 AM EDT pe n injector 1 INJECT 0.5MG WEEKLY INJECT 0.5MG WEEKLY SOLD: 12/09/2020 [facility] Ozempic (0.25 Or 0.5 MG/Dose) Ozempic (0.25 Or 0.5 MG/Dose) 11/28/2020 12:00:00 AM EDT active [facility] ([facility]) Allopurinol 300 MG Oral Tablet Allopurinol 300 MG Oral Table t 09/13/2020 12:00:00 AM EDT 1 active allopuri nol 300 MG Oral Tablet [place] (Edin Paul MD [facility]) Clindamycin 150 MG Oral Capsule CLINDAMYCIN HCL [...] type / Coverage type Policy ID Covered democrat ID Covered democrat's relationship to more Policy More Plan Information MEDICARE [id number] SP [id number] A MEDICARE COMPLETE [id number] SP [id number] ANS-Medicare Part B [id number] ANS-Medicare Part B [id number] [facility]/Medicare Commercial [id number] Self [id number] MEDICARE COMPLETE [id number] SP [id number] [facility] Medicare Commercial [id number] Self [id number] [facility]/Medicare Commercial [id number] Self [facility]/Medicare Commercial [id number] Self [employer] [id number] SP [id number] MEDICARE COMPLETE [id number] SP [id number] 300 Problems, Conditions, and Diagnoses Code Display Name Description Problem Type Effective Dates Data Source(s) [id number] Pure hypercholesterolemia Pure hypercholesterolemia Pr oblem 11/24/2020 12:00:00 AM EDT [facility] [id number] Essential hypertension Essential hypertension Problem 11/24/2020 12:00:00 AM EDT [facility] ([facility]) Surgeries/Procedures Procedure Description Date Indications Data Source(s) OFFICE OUTPATIENT VISIT 25 MINUTES 03/21/2021 12:00:00 AM EDT [facility] OFFICE OUTPATIENT NEW 60 MINUTES 11/28/2020 12:00:00 A M EDT [facility] ([facility]) Diabetic Foot Exam 09/15/2020 12:00:00 AM EDT [facility] ([facility]) Intermediate Eye Exam Established Patient Intermediate Eye Exam Established Patient 09/13/2020 12:00:00 AM EDT [place] (Thang Paul MD [facility]) Results ID Date Data Source [id number] 03/21/2021 10:08:00 AM EDT [facility] ([facility]) Name Value Range Interpretation Code Description Data Ewelina rce(s) Supporting Document(s) Glucose [Mass/volume] in Serum or Plasma 152 [facility] ([facility]) Hemoglobin A1c/Hemoglobin.total in Blood 6.3 [facility] ([facility]) Procedure Social History Code Duration Value Status Description Data Source(s ) Smoking 02/02/2021 03:16:58 PM EDT Ex-smoker (finding) complet ed Ex-smoker (finding) [place] (Edin Paul MD [facility]) Smoking 09/14/2020 10:54:58 AM EDT Ex-smoker (finding) complet ed Ex-smoker (finding) [place] (Edin Paul MD [facility]) Vital Signs ID Date Data Source UNK Name Value Range Interpretation Code Description Data Source(s) Systolic blood pressure 124 mm[Hg] 124 mm[Hg] [facility] Diastolic blood pressure 70 mm[Hg] 70 mm[Hg] [facility] ([facility]) Heart rate 81 /min 81 /min [facility] ([facility]) Body weight 204.12 [lb_av] 204.12 [lb_av] [facility] ([facility]) Oxygen saturation in Arterial blood by Pulse oximetry 98 % 98 % [facility] ([facility] ) Diastolic blood pressure 62 mm[Hg] 62 mm[Hg] [facility] ([facility] Heart rate 63 /min 63 /min [facility] ([facility]) Systolic blood pressure 132 mm[Hg] 132 mm[Hg] [facility] ([facility]) Body temperature 96.5 [degF] 96.5 [degF] [facility] ([facility]) Body height 62.6 [in_i] 62.6 [in_i] [facility] 5'2.60" Body weight 211.00 [lb_av] 211.00 [lb_av] [facility] ([facility]) Body mass index (BMI) [Ratio] 37.9 kg/m2 37.9 k g/m2 [facility] Oxygen saturation in Arterial blood by Pulse oximetry 98 % 98 % [facility]
[2021-05-02 22:47] LABS: URIC ACID 7.2 MG/DL (2.6-6.0)
--- NOTE | 2021-05-02 22:51 | ECGEPIP ---
[facility] - ED Test Date: 2021-05-02 Pat Name: LUIS ELLIOTT Department: Room: - Gender: Female Client Relationship Consultant: OVIDIO : 1945 Requested By: Bonifacio Saldivar Order Number: [id number] Reading MD: Bonifacio Messer Measurements Intervals [place] Rate: 61 P: HI: 384 QRS: -44 QRSD: 118 T: 28 QT: 454 QTc: 457 Interpretive Statements Sinus rhythm with 1st degree AV block Left axis deviation LEFT ANTERIOR FASCICULAR BLOCK Nonspecific intraventricular conduction delay Minimal voltage criteria for LVH, may be normal variant ( Davey product ) SIMILAR TO 10/14/19 Electronically Signed on 05-02-2021 22:51:27 EST by Bonifacio Messer
[2021-05-02] MEDS ORDERED: VANCOMYCIN HCL 1,000 MG, VIAL MATE ADAPTER 1 EACH in NS 250 ML IV ONE (23:00)
[2021-05-02] MEDS: NS 1,000 ML IV SCH (23:32)
--- NOTE | 2021-05-03 00:06 | REPVR ---
PROCEDURE INFORMATION: Exam: US Abdomen Complete Exam date and time: 05/02/2021 11:18 PM Age: 75 years old Clinical indication: Other: Sergey and transamnitis; Additional info: Sergey and transaminitis TECHNIQUE: Imaging protocol: Real-time ultrasound of the abdomen with image documentation. COMPARISON: No relevant prior studies available. FINDINGS: Liver: Normal. No mass. Gallbladder: Gallstones, gallbladder wall thickening measuring 7 mm, and gallbladder distension, 12 cm in greatest diameter.. Evidence for acute cholecystitis. Common bile duct: Normal common biliary duct diameter of 6 mm. Pancreas: Visualized pancreas is unremarkable. Right kidney: Normal. No mass. No hydronephrosis. Left kidney: Normal. No mass. No hydronephrosis. Spleen: Unremarkable 10 cm spleen. Aorta: Normal caliber aorta measuring up to 2.6 cm. Inferior vena cava: Normal. Intraperitoneal space: Small amount of fluid located within the right upper quadrant. IMPRESSION: Small amount of fluid located within the right upper quadrant. Gallstones, gallbladder wall thickening measuring 7 mm, and gallbladder distension, 12 cm in greatest diameter.. Evidence for acute cholecystitis. Electronically signed by: Edin Iraheta On 05/03/2021 00:05:28 AM
[2021-05-03] MEDS ORDERED: VANCOMYCIN INTERMITTENT/PULSE DOSING BY CLINICAL PHARMACIST PER DOSING PROTOCOL XX SCH (00:10)
[2021-05-03 00:30] LABS: HEMOGLOBIN A1c 6.3 %
[2021-05-03 00:49] LABS: BASO % 0.2 % (0.0-1.0); HEMOGLOBIN 9.5 g/dl (12.0-15.5); LYMPH # 0.9 10^3/uL (1.5-5.0); LYMPH % 7.4 % (24.0-44.0); MEAN CORPUSCULAR HEMOGLOBIN 31.8 pg (27.0-33.0); MEAN CORPUSCULAR HGB CONC 33.9 g/dl (32.0-36.5); MEAN CORPUSCULAR VOLUME 93.6 fl (80.0-96.0); MONO # 1.2 10^3/uL (0.0-0.8); MONO % 9.2 % (2.0-8.0); NEUTROPHILS # 10.4 10^3/uL (1.5-8.5); NEUTROPHILS % 82.6 % (36.0-66.0); PLATELET COUNT, AUTOMATED 143 10^3/uL (150-450); RED BLOOD COUNT 2.99 10^6/uL (4.00-5.40); WHITE BLOOD COUNT 12.6 10^3/uL (4.0-10.0)
[2021-05-03] MEDS ORDERED: VANCOMYCIN HCL 1,000 MG, VIAL MATE ADAPTER 1 EACH in NS 250 ML IV ONE (01:00)
[2021-05-03 02:23] LABS: AMORPHOUS SEDIMENT MODERATE (NEGATIVE); APPEARANCE, URINE TURBID (CLEAR); BACTERIA, URINE AUTO 2+ (NEGATIVE); BILIRUBIN, URINE AUTO NEGATIVE (NEGATIVE); BLOOD, URINE BLOOD 3+ (NEGATIVE); COLOR, URINE AMBER (YELLOW); GLUCOSE, URINE (UA) AUTO NEGATIVE (NEGATIVE); KETONE, URINE AUTO NEGATIVE (NEGATIVE); LEUKOCYTE ESTERASE, URINE AUTO 3+ (NEGATIVE); MUCUS, URINE SMALL (NEGATIVE); NITRITE, URINE AUTO NEGATIVE (NEGATIVE); PROTEIN, URINE AUTO 3+ mg/dL (NEGATIVE); RBC, URINE AUTO 103 /HPF (0-3); SPECIFIC GRAVITY URINE AUTO 1.016 (1.002-1.035); SQUAMOUS EPITHELIAL CELL UR AU 1 /HPF (0-6); UROBILINOGEN, URINE AUTO 0.2 mg/dL (0.0-2.0); WBC, URINE AUTO TNTC /HPF (0-3)
[2021-05-03 03:12] LABS: CALCIUM LEVEL 8.9 MG/DL (8.8-10.2); CREATININE FOR GFR 4.92 MG/DL (0.55-1.30); GLOMERULAR FILTRATION RATE 9.1 (>39); POTASSIUM SERUM 4.3 MEQ/L (3.5-5.1)
[2021-05-03] MEDS: PIPERACILLIN/TAZOBACTAM SOD 2.25 GM in D5W MINI-BAG PLUS 50 ML IV SCH ×4 (03:19→21:29)
[2021-05-03] MEDS: HumaLOG INSULIN (NovoLOG) PER UNIT SC SCH ×4 (05:45→18:00)
[2021-05-03] MEDS: HEPARIN SOD (PORCINE) 5000UNITS/ML 1ML VIAL/SYRINGE SC SCH ×3 (05:53→21:37)
[2021-05-03] MEDS ORDERED: metroNIDAZOLE 500 MG in IV 1 EA IV SCH (06:00)
[2021-05-03 08:09] LABS: HEMATOCRIT 29.3 % (36.0-47.0); HEMOGLOBIN 9.9 g/dl (12.0-15.5); MEAN CORPUSCULAR HEMOGLOBIN 31.3 pg (27.0-33.0); MEAN CORPUSCULAR HGB CONC 33.8 g/dl (32.0-36.5); MEAN CORPUSCULAR VOLUME 92.7 fl (80.0-96.0); PLATELET COUNT, AUTOMATED 156 10^3/uL (150-450); RED BLOOD COUNT 3.16 10^6/uL (4.00-5.40); WHITE BLOOD COUNT 14.3 10^3/uL (4.0-10.0)
[2021-05-03 08:50] LABS: ALBUMIN 2.6 GM/DL (3.2-5.2); ALT/SGPT 39 U/L (12-78); BILIRUBIN,TOTAL 0.8 MG/DL (0.2-1.0); BLOOD UREA NITROGEN 92 MG/DL (7-18); CALCIUM LEVEL 8.9 MG/DL (8.8-10.2); CARBON DIOXIDE LEVEL 19 MEQ/L (21-32); CHLORIDE LEVEL 98 MEQ/L (98-107); CREATININE FOR GFR 4.84 MG/DL (0.55-1.30); GLOMERULAR FILTRATION RATE 9.3 (>39); GLUCOSE, FASTING 106 MG/DL (70-100); PHOSPHORUS LEVEL 5.7 MG/DL (2.5-4.9); POTASSIUM SERUM 4.5 MEQ/L (3.5-5.1); SODIUM LEVEL 131 MEQ/L (136-145); TOTAL PROTEIN 5.9 GM/DL (6.4-8.2)
[2021-05-03] MEDS ORDERED: VERAPAMIL 120 MG SR TAB PO SCH (09:00)
[2021-05-03] MEDS: FLUTICASONE PROP 0.05% NASAL SPRAY 16 GM (FLONASE) SCH (09:00)
[2021-05-03] MEDS: ASPIRIN 81MG ENTERIC TABLET PO SCH (09:39)
[2021-05-03] MEDS: CARVedilol 12.5 MG TAB PO SCH ×2 (09:40→21:28)
[2021-05-03 10:30] LABS: HEPATITIS B SURFACE ANTIBODY NEGATIVE (POSITIVE)
[2021-05-03 10:41] LABS: HEPATITIS B SURFACE ANTIGEN NEGATIVE (NEGATIVE)
[2021-05-03 11:09] LABS: HEPATITIS C VIRUS ABY INDEX 0.1 INDEX (<0.8)
[2021-05-03 11:10] LABS: HEPATITIS B CORE ANTIBODY IGM NEGATIVE (NEGATIVE)
[2021-05-03 11:24] LABS: VANCOMYCIN RANDOM 19.5 UG/ML
[2021-05-03 11:35] LABS: CREATININE FOR GFR 4.61 MG/DL (0.55-1.30); GLOMERULAR FILTRATION RATE 9.8 (>39); POTASSIUM SERUM 4.3 MEQ/L (3.5-5.1)
--- NOTE | 2021-05-03 13:03 | IPNPDOC ---
Text Note Date of Service The patient was seen on 05/03/21. NOTE Subjective: 75-year-old female initially presented emergency room department following a fall. She reports having nausea, vomiting, diarrhea, myalgias and chills which had somewhat resolved but her malaise continues. She attributes her lower extremity neuropathy in her recent onset of generalized weakness contributing to her fall. She was admitted for hypotension, acute kidney injury, rhabdomyolysis, electrolyte abnormalities, and transaminitis. Presently, she continues to complain of malaise and myalgia. She also reported having diffuse abdominal pain, greatest in the right upper quadrant region. She denied having shortness of breath, chest pain, problems with urination or bowel movements. Review of systems: 10 point review of system was negative except for what is noted in the HPI Physical exam: General: Lying in bed, no acute distress Head/Neck/Throat: Trachea midline, mucous membranes moist Eyes: Sclera anicteric, no erythema or discharge appreciated bilaterally Thorax: Normal respiratory effort on room air, lungs clear to auscultation bilaterally, no wheezes/rales/rhonchi Cardiovascular: Normal rate, regular rhythm, normal S1, S2; no S3, S4, rub s/gallops/murmurs Abdomen: Bowel sounds present, soft, nondistended, tenderness reported greatest in the right upper quadrant Genitourinary: No CVA tenderness, no Enrique in place Musculoskeletal: Moving all extremities, no edema Skin: Warm, dry Neurologic: AAOx3, speech fluent and goal-directed, no focal deficits, grossly intact Labs: See below Imaging: Please see imaging section Assessment/plan: 75-year-old female with past medical history of insulin-dependent diabetes mellitus, hyper tension, dyslipidemia, chronic kidney disease stage III, chronic anemia, and obesity was admitted for hypotension, acute kidney injury, rhabdomyolysis, hyponatremia, and cholecystitis. #Acute cholecystitis -Surgery aware. NPO diet, IV fluids, continue with Zosyn. #Bactermia -Possible sources include urine and gallbladder. Continue with Zosyn until cultures have resulted. Repeat blood cx on 05/04. #UTI -Plan as above. #Transaminitis -Likely 2/2 to acute cholecystitis. Hep panel is negative. #Rhabdomyolysis -Reports being on the ground for 2 hours. Continue with IV fluids. Trend creati nine kinase. #Acute on chronic kidney disease -Suspect ATN in the setting of rhabdomyolysis. She is making satisfactory urine, continue to trend creatinine. #Hypotension -Resolved. #Chronic lung scarring -Monitor respiratory status #[id number] diabetes mellitus -Hold oral diabetic medications during hospitalization. Diabetic diet, Accu- Cheks, hypoglycemic protocol, and sliding scale. #Chronic anemia -Resume iron following acute infection #Class I obesity -Complicates care #DVT prophylaxis -Heparin subcu VS,Fishbone, I+O VS, Fishbone, I+O Laboratory Tests 05/02/21 18:42 05/02/21 23:45 05/03/21 03:02 05/03/21 07:59 Vital Signs Date Time Temp Pulse Resp B/P (MAP) Pulse Ox O2 Delivery O2 Flow Rate FiO2 05/03/21 09:40 74 150/79 05/03/21 07:45 97.2 20 92 05/03/21 06:00 Nasal Cannula 3.0 I&O- Last 24 Hours up to 6 AM 05/03/21 06:00 Intake Total 3580 ml Output Total 90 ml Balance 3490 ml MARILU WATSON M.D. May 03, 2021 11:35
[2021-05-03] MEDS: NS 1,000 ML IV SCH (13:05)
[2021-05-03 14:57] LABS: CALCIUM LEVEL 9.1 MG/DL (8.8-10.2); CREATININE FOR GFR 4.54 MG/DL (0.55-1.30); POTASSIUM SERUM 4.2 MEQ/L (3.5-5.1)
--- NOTE | 2021-05-03 16:39 | CR ---
CONSULTATION DATE: 05/03/2021 REQUESTING PHYSICIAN: Tessy Skinner MD REASON FOR CONSULTATION: Acute renal failure. HISTORY OF PRESENT ILLNESS: Miss Leilani Mejia is previously unknown to me. She is a 75-year-old female with a past medical history of type 2 diabetes mellitus, hypertension, CKD stage 3A, chronic anemia and other comorbid conditions mentioned below. The patient states she was in her usual stage of health until April the . She was attending a family get together and subsequently had to leave early because of development of nausea, vomiting, diarrhea, generalized fatigue, myalgias and chills. She continued to feel poorly over the next several days and reports ongoing bouts of watery diarrhea, nausea, poor oral intake and vomiting. She reports she continued to take her prescription medications despite feeling unwell and became concerned when she noticed that she was not producing urine. The patient tried taking additional doses of her diuretic (Lasix) without any improvement in urine output and as she continued to feel generally unwell, she presented to the emergency room. In the ER, the patient was noted to be afebrile and hypotensive with systolic 70s to 80s and laboratory studies revealed leukocytosis with white count of 15.3 and renal failure with blood urea nitrogen of 97 and creatinine of 5.0 and mild lactic acidosis of 2.3 and creatine kinase of 1900 and an elevated CRP of 29. She had blood cultures and urine culture. Blood culture promptly returned back positive for gram negative rods x2 sets and subsequent abdominal ultrasound had evidence of gallstones with thickened gallbladder wall and gallbladder distention and evidence for acute cholecystitis. The patient had a Enrique catheter placed and was bolused just shy of three liters of normal saline and was started on broad spectrum antibiotics. A nephrology evaluation was requested in view of acute renal failure. The patient was seen and examined by myself this morning in the emergency room. PAST MEDICAL HISTORY: 1. Type 2 diabetes mellitus. 2. Hypertension. 3. CKD stage 3A. 4. Dyslipidemia. 5. Class 1 obesity. 6. Chronic anemia. 7. Hiatal hernia. 8. Right knee total surgery. 9. GERD. 10. Gout. PAST SURGICAL HISTORY: 1. Right knee total surgery. 2. Bunionectomy. 3. Tubal ligation. 4. Hemorrhoidectomy. 5. Tonsillectomy. 6. Back surgery. 7. Bilateral cataract surgery. SOCIAL HISTORY: She is an ex-smoker. She is . She reports social and rare alcohol. She lives with her son. ALLERGIES: No known drug allergies. FAMILY HISTORY: Significant for kidney disease in her siblings and heart disease in her father. HOME MEDICATIONS: 1. Aspirin 81 mg p.o. daily. 2. Atorvastatin 80 mg p.o. q.h.s. 3. Carvedilol 12.5 mg p.o. b.i.d. 4. Ferrous sulfate 650 mg p.o. daily. 5. Furosemide 40 mg p.o. daily. 6. Lopid 600 mg p.o. twice daily. 7. Glipizide 5 mg p.o. b.i.d. 8. Loratadine 10 mg p.o. q.h.s. 9. Losartan 100 mg p.o. q.h.s. 10. Metformin 1000 mg p.o. b.i.d. 11. Protonix 40 mg p.o. daily. 12. Potassium chloride 8 mEq p.o. q.h.s. 13. Ozempic once weekly. 14. Verapamil 240 mg p.o. daily. 15. Allopurinol 300 mg p.o. q.h.s. REVIEW OF SYSTEMS: Constitutional: She reports generalized weakness, fatigue but denies fevers. She reports chills. Eyes: She denies visual changes or tearing. ENT: Denies rhinorrhea, epistaxis, odynophagia. Cardiac: She denies chest pain or palpitations or leg swelling. Respiratory: She is an ex-smoker. She denies any current shortness of breath or cough. Gastrointestinal: She reports nausea, vomiting, poor oral intake, diarrhea. Genitourinary: She reports no recent UTI symptoms but did have UTI in the past while she was on Jardiance. She reports decreased urination at home the past day or two. Endocrine: She reports diabetes. Hematologic: She reports chronic anemia. She denies anticoagulant use. Musculoskeletal: She reports myalgias. She denies leg swelling. Neurologic: She denies seizure or syncope. Skin: She denies any new rashes or ulcers. Remainder of review of systems is negative or as per HPI. PHYSICAL EXAMINATION: Vital signs: Temperature 97.2, pulse 73, respiratory rate 18, blood pressure currently 135/79, significantly improved from blood pressures in the emergency room yesterday evening which were systolic 70s to 80s, saturating 94% on room air. Intake yesterday was 2.8 liters. Weight in the bed scale today is 92.7 kg. General: Patient is seen lying in the stretcher in the emergency room, elderly female, awake, alert, oriented in no acute distress, interactive and conversational. HEENT: Extraocular muscles are intact. Tongue and oral mucous membranes are both dry. Jugular veins are not elevated. She is seen on nasal cannula. Heart sounds are regular, S-1, S-2. Extremities: There is no peripheral edema. Lungs: Show diminished breath sounds bilaterally with occasional rhonchus. There is no accessory muscle use or tachypnea. She is comfortable on room air. Abdomen: Soft and tender to palpation in the epigastrium. There are bowel sounds. Genitourinary: Shows indwelling Enrique catheter. Extremities: Show no edema, clubbing or cyanosis. Skin: Warm and dry, normal temperature and turgor. LABORATORY DATA: Sodium 126 on admission and currently 129. Potassium 5.3 on admission and currently 4.3, bicarbonate 22 on admission and currently 18, BUN 99, creatinine 4.6, down from 5.0 on admission. Lactic acid 2.3, AST, ALT within normal limits. Creatine kinase 1900 on admission, currently 1000. CRP 29, albumin 3.2, white count 14.3, hemoglobin 9.9, platelets 156. Urinalysis shows bacteria, WBC, RBC, blood and protein. Random vancomycin level this morning is 19. Blood cultures grew gram negative rods x2 sets. Urine culture is pending. Abdominal ultrasound shows gallstones, gallbladder wall thickening, gallbladder distention, evidence for acute cholecystitis, no hydronephrosis of the right nor the left kidney. Chest x-ray done yesterday evening shows lingular air space disease consistent with pneumonia or atelectasis. INPATIENT MEDICATIONS: She received normal saline bolus of 2.8 liters. She is currently on normal saline at 90 mL an hour which I decreased to 60 mL an hour. She is on Zosyn 2.25 gm IV q.6 hourly. She received vancomycin. She received a dose of cefepime, aspirin 81 mg p.o. daily, carvedilol 12.5 mg p.o. b.i.d., Lopid 600 mg p.o. b.i.d., heparin, subcu insulin. PROBLEMS: 1. Acute renal failure superimposed on CKD stage 3A. It is in the setting of prerenal state and dehydration with use of nephrotoxic medications at home (Losartan and metformin). Patient endorses a four day history of nausea, vomiting and diarrhea. She is clinically dry. She has received a normal saline bolus of almost three liters. I cut down the rate of normal saline now to 60 cc an hour. She has a Enrique catheter. There is no obstruction on renal imaging and patient is making urine. Renal failure is also in the setting of acute infection and bacteremia. 2. Gram negative valarie bacteremia. Patient has positive blood cultures x2 sets. Urinalysis was also suspicious and urine culture is pending. She had an elevated white count. She was hypotensive on admission. She has improved with IV fluid bolus. She is on broad spectrum antibiotics managed by the primary team. He random vancomycin level was appropriate. She had abnormal gallbladder imaging and is pending surgical evaluation. 3. Sepsis with concomitant renal failure. Sepsis is in the setting of bacteremia. Patient's blood pressure is now improved with aggressive IV fluid hydration. I cut down the rate of normal saline now to 60 mL an hour. I have added holding parameters to the carvedilol and I have stopped verapamil. Urine culture is pending and she is also pending evaluation of the gallbladder by surgical service. 4. Hypovolemic hyponatremia. Patient has a slightly high serum osmolality. Her sodium level is appropriately improving. Continue with IV fluids at this time (normal saline). 5. Chronic anemia, I will hold off on iron studies at this time given patient's active bacteremia. 6. High anion gap metabolic acidosis. Bicarbonate is 18 on the most recent chemistry. We will get a repeat chemistry this evening and if bicarbonate is any lower, I will switch her fluids to bicarbonate based. 7. Mild rhabdomyolysis, Creatine kinase level is downtrending with IV fluid hydration. 8. Disposition. There is no urgent indication for dialysis at present time. I have updated the patient's daughter (Valerie Juarez) regarding patient's clinical condition. I will be happy to follow Miss Mejia along with you.
[2021-05-03 18:34] LABS: CALCIUM LEVEL 9.3 MG/DL (8.8-10.2); CREATININE FOR GFR 4.35 MG/DL (0.55-1.30); GLOMERULAR FILTRATION RATE 10.5 (>39)
[2021-05-03 22:51] LABS: CALCIUM LEVEL 9.2 MG/DL (8.8-10.2); CREATININE FOR GFR 3.97 MG/DL (0.55-1.30); GLOMERULAR FILTRATION RATE 11.7 (>39); POTASSIUM SERUM 3.9 MEQ/L (3.5-5.1)
[2021-05-04] VITALS (10 sets, daily range): BP systolic 124–143; BP diastolic 58–72; O2SAT 93–97
[2021-05-04 03:26] LABS: CREATININE FOR GFR 3.64 MG/DL (0.55-1.30); GLOMERULAR FILTRATION RATE 12.9 (>39); POTASSIUM SERUM 3.6 MEQ/L (3.5-5.1)
[2021-05-04] MEDS: PIPERACILLIN/TAZOBACTAM SOD 2.25 GM in D5W MINI-BAG PLUS 50 ML IV SCH ×4 (03:33→21:27)
[2021-05-04] MEDS ORDERED: ACETAMINOPHEN 325 MG TAB PO ONE (03:50)
[2021-05-04] MEDS: HumaLOG INSULIN (NovoLOG) PER UNIT SC SCH ×5 (06:00→21:00)
[2021-05-04] MEDS: NS 1,000 ML IV SCH (07:16)
[2021-05-04] MEDS: HEPARIN SOD (PORCINE) 5000UNITS/ML 1ML VIAL/SYRINGE SC SCH ×3 (07:17→21:31)
--- NOTE | 2021-05-04 07:22 | CR.PDOC ---
General Surgery Consultation Date of Consultation 05/04/21 History and Physical CONSULT REPORT FOR: REASON FOR CONSULTATION: HISTORY OF PRESENT ILLNESS: PAST MEDICAL HISTORY: 1. . PAST SURGICAL HISTORY: INCLUDES: 1. . PREVIOUS ANESTHESIA REACTIONS: ALLERGIES: Please see below. FAMILY HISTORY: . HOME MEDICATIONS: Please see below. REVIEW OF SYSTEMS: GENERAL: [Denies chills, reports weight gain, reports feeling febrile yesterd ay]. HEENT: [Denies blurred vision and double vision. Denies ear symptoms. Denies hoarseness]. NECK: Denies any neck pain]. CARDIOVASCULAR: [Denies chest pain and palpitations]. MUSCULOSKELETAL: [Denies arthralgias, back pain and thrombophlebitis]. SKIN: [Denies rash]. NEUROLOGIC: [Denies headache, stroke and transient ischemic attack]. PSYCHIATRIC: [Denies anxiety and depression]. ENDOCRINE: [Denies thyroid disease]. HEMATOLOGY/ONCOLOGY: [Denies bleeding or clotting disorder]. HEART: [Denies any chest pains, palpitations, paroxysmal dyspnea, orthopnea]. PULMONARY: [Denies chronic cough, dyspnea and wheezing]. GASTROINTESTINAL: [Denies rectal bleeding, family history of colon cancer, const ipation, diarrhea, dysphagia, heartburn and jaundice]. GENITOURINARY: [Denies dysuria, frequency, hematuria and nocturia]. ENDOCRINE: [Denies polydipsia, polyphagia, polyuria, heat or cold intolerance]. INFECTIOUS: [Denies any recent upper respiratory tract infection, UTI, need for use of antibiotics]. NUTRITION: [Reports good appetite]. PHYSICAL EXAMINATION: VITALS SIGNS: Please see below. GENERAL APPEARANCE:[Patient seen, laying in bed, awake, alert, and oriented. Comfortable, in no acute distress]. SKIN: [Warm and moist]. HEENT: [Normocephalic, atraumatic. [place] palpebral conjunctiva, anicteric sclerae. Lips and mucosa appear moist]. NECK: [Supple, no thyromegaly. No obvious jugular venous distention]. LUNGS: [Clear to auscultation bilaterally. No wheezing appreciated]. HEART: [No chest wall abnormalities. Regular rate and rhythm with no murmurs appreciated]. ABDOMEN: Abdomen is , soft, . [No hepatosplenomegaly. No umbilical or groin herniations, nondistended. No noticeable rebound or guarding. No grimacing with palpation. No rebound tenderness. No masses appreciated]. EXTREMITIES: [Extremities have no deformities. No edema identified] ANCILLARIES: . LABORATORY DATA: Please see below. IMAGING STUDIES: . IMPRESSION AND PLAN: Vomiting and diarrhea which seems to be self-limited but probably more related to gastroenteritis/enterocolitis Dehydration from diarrhea and poor oral intake Possible acute cholecystitis only on imaging though symptom funes she does not have any prominent abdominal pain throughout the time that she was experiencing diarrhea, nausea or vomiting Patient symptoms are not exactly biliary in nature. She has prominent complaint of diarrhea earlier on, anorexia and poor oral intake may be bloating. She was not complaining of any abdominal pain. She denies any prior symptoms of biliary colic type episodes. So not sure if she is really having acute cholecystitis. The ultrasound was actually obtained because there was a mild elevation in her LFTs from her baseline which could very well happen during acute viral infectious episode. I was told that she was tender over the right upper quadrant though at the time that I examined her she does not have any tenderness anymore. So overall I am not sure if she really has symptoms related to her gallbladder. She is already on antibiotics to cover for possible UTI and possible cholecystitis and I would think is a short course antibiotics as needed. She can follow-up in the clinic and we can discuss whether she really needs cholecystectomy done versus close watchful waiting if she does develop symptoms from her gallstones. I have advanced her diet. Vital Signs Vital Signs Date Time Temp Pulse Resp B/P (MAP) Pulse Ox O2 Delivery O2 Flow Rate FiO2 05/04/21 03:00 4.0 05/04/21 03:00 98.5 71 16 124/59 (80) 93 05/04/21 01:46 Room Air I&Os I&O- Last 24 Hours up to 6 AM 05/04/21 06:00 Intake Total 806 ml Output Total 3420 ml Balance -2614 ml Laboratory Data Labs 24H Laboratory Tests 2 05/03/21 07:59: Nucleated Red Blood Cells % (auto) 0.0, Anion Gap 14, Glomerular Filtration Rate 9.3L, Calcium Level 8.9, Phosphorus Level 5.7H, Total Bilirubin 0.8, Aspartate Amino Transf (AST/SGOT) 33, Alanine Aminotransferase (ALT/SGPT) 39, Alkaline Phosphatase 84, Total Creatine Kinase 1043H, Total Protein 5.9L, Albumin 2.6L, Albumin/Globulin Ratio 0.8L, Random Vancomycin Level 19.5, Hepatitis B Surface Antigen NEGATIVE, Hepatitis B Surface Antibody NEGATIVE, Hepatitis B Core IgM Antibody NEGATIVE, Hepatitis C Antibody Index 0.1 05/03/21 10:41: Anion Gap 15, Glomerular Filtration Rate 9.8L, Calcium Level 9.0 05/03/21 12:35: Bedside Glucose (Misc Panel) 106 05/03/21 13:49: Anion Gap 13, Glomerular Filtration Rate 10.0L, Calcium Level 9.1 05/03/21 17:32: Anion Gap 12, Glomerular Filtration Rate 10.5L, Calcium Level 9.3 05/03/21 18:03: Bedside Glucose (Misc Panel) 91 05/03/21 21:38: Anion Gap 16, Glomerular Filtration Rate 11.7L, Calcium Level 9.2 05/04/21 02:41: Anion Gap 15, Glomerular Filtration Rate 12.9L, Calcium Level 9.0 05/04/21 05:25: Total Creatine Kinase 398H, Random Vancomycin Level 13.6 CBC/BMP Laboratory Tests 05/03/21 07:59 05/03/21 10:41 05/03/21 13:49 05/03/21 17:32 05/03/21 21:38 05/04/21 02:41 Microbiology Microbiology 05/03/21 Urine Culture, Received Pending 05/02/21 Blood Culture - Preliminary, Resulted 05/02/21 Blood Culture - Preliminary, Resulted Home Medications Scheduled (Slow Fe) 142 Mg Tab, 2 TAB PO QHS, (Reported) Aspirin (Aspirin EC) 81 Mg Tab, 81 MG PO DAILY, (Reported) Atorvastatin Calcium (Lipitor) 80 Mg Tab, 80 MG PO QHS, (Reported) Carvedilol (Coreg) 12.5 Mg Tab, 12.5 MG PO BID, (Reported) Ferrous Sulfate (Ferrous Sulfate) 325 Mg Tablet, 650 MG PO DAILY, (Reported) Fluticasone Propionate (Flonase Allergy Relief) 50 Mcg/Act Spr, 2 SPRAYS NA DAILY, (Reported) Furosemide (Lasix) 40 Mg Tab, 40 MG PO DAILY, (Reported) Gemfibrozil (Lopid) 600 Mg Tablet, 600 MG PO BID, (Reported) Glipizide (Glipizide) 5 Mg Tab, 5 MG PO BID, (Reported) Loratadine (Loratadine) 10 Mg Tablet, 10 MG PO QHS, (Reported) Losartan Potassium (Losartan Potassium) 100 Mg Tab, 100 MG PO QHS, (Reported) Metformin HCl (Metformin HCl) 1,000 Mg Tab, 1,000 MG PO BID, (Reported) Pantoprazole Sodium (Protonix) 40 Mg Tab, 40 MG PO DAILY, (Reported) Potassium Chloride (Potassium Chloride) 8 Meq Tablet.er, 8 MEQ PO QHS, (Reported) Semaglutide (Ozempic) 0.25 Mg/0.2 Ml Pen.injctr, 0.5 MG SC QWEEK, (Reported) EVERY SATURDAY @ 1200 Verapamil HCl (Verapamil ER) 240 Mg Tablet.er, 240 MG PO DAILY, (Reported) allopurinoL (allopurinoL) 300 Mg Tablet, 300 MG PO QHS, (Reported) Scheduled PRN Carboxymethylcellulose Sodium (Refresh Tears) 15 Ml Drops, 1 DROP OU QID PRN for DRY EYES, (Reported) Allergies Coded Allergies: No Known Allergies (Verified , 09/04/18) MIAR ORTIZ MD May 04, 2021 07:22
[2021-05-04] MEDS: FLUTICASONE PROP 0.05% NASAL SPRAY 16 GM (FLONASE) SCH (08:40)
[2021-05-04] MEDS: ASPIRIN 81MG ENTERIC TABLET PO SCH (08:40)
[2021-05-04] MEDS: CARVedilol 12.5 MG TAB PO SCH ×2 (08:41→21:27)
--- NOTE | 2021-05-04 11:39 | IPNPDOC ---
Text Note Date of Service The patient was seen on 05/04/21. NOTE General surgery. Dr. Pierson. This morning, the patient is resting comfortably in bed. She is tolerating diet, she had Polish toast for breakfast with coffee and states she has no nausea or vomiting. She states she has some occasional nausea but it is mild and short-lived. She denies any abdominal pain currently. She also has not had any bowel movements since admission. Temperature 97.1, heart rate 68, respiratory rate 19, blood pressure 135/64, 92% 4 L nasal cannula. Awake and alert, sitting up in bed eating breakfast, no acute distress MMM Respirations easy, no wheezing S1-S2 regular rate rhythm Abdomen is soft, nondistended, there is mild tenderness noted in the epigastric area, no tenderness in the right upper quadrant area. No guarding or rebound. No CBC this morning. Assessment/plan Vomiting and diarrhea which seems to have been self-limited, the patient is tolerating soft diet and has not had any further diarrhea since admission. Most likely this is more related to gastroenteritis/enterocolitis. Possible acute cholecystitis The patient does have some epigastric discomfort but no right upper quadrant pain on exam but abdominal pain was not one of her prominent symptoms during the diarrhea, nausea or vomiting. She is tolerating diet this morning. Dr. Pierson has discussed with the patient that she can follow-up as an outpatient for further discussion, could possibly consider outpatient elective cholecystectomy. The patient verbalizes understanding and agreement. VS,Fishbone, I+O VS, Fishbone, I+O Laboratory Tests 05/03/21 10:41 05/03/21 13:49 05/03/21 17:32 05/03/21 21:38 05/04/21 02:41 Vital Signs Date Time Temp Pulse Resp B/P (MAP) Pulse Ox O2 Delivery O2 Flow Rate FiO2 05/04/21 08:41 68 135/64 05/04/21 08:00 97.1 19 92 Nasal Cannula 4.0 I&O- Last 24 Hours up to 6 AM 05/04/21 06:00 Intake Total 806 ml Output Total 3420 ml Balance -2614 ml Kirsty Gee May 04, 2021 09:27
--- NOTE | 2021-05-04 11:56 | IPNPDOC ---
Text Note Date of Service The patient was seen on 05/04/21. NOTE Subjective: 75-year-old female initially presented emergency room department following a fall. She reports having nausea, vomiting, diarrhea, myalgias and chills which had somewhat resolved but her malaise continues. She attributes her lower extremity neuropathy in her recent onset of generalized weakness contributing to her fall. She was admitted for hypotension, acute kidney injury, rhabdomyolysis, electrolyte abnormalities, and transaminitis. Presently, reports improvement in her malaise/myalgia. However, has mild epigastric pain. She is tolerating her diet. She denied having shortness of breath, chest pain, problems with urination or bowel movements. Review of systems: 10 point review of system was negative except for what is noted in the HPI Physical exam: General: Lying in bed, no acute distress Head/Neck/Throat: Trachea midline, mucous membranes moist Eyes: Sclera anicteric, no erythema or discharge appreciated bilaterally Thorax: Normal respiratory effort on room air, lungs clear to auscultation bilaterally, no wheezes/rales/rhonchi Cardiovascular: Normal rate, regular rhythm, normal S1, S2; no S3, S4, rubs/gallops/murmurs Abdomen: Bowel sounds present, soft, nondistended, tenderness reported in the epigastric region Genitourinary: No CVA tenderness, no Enrique in place Musculoskeletal: Moving all extremities, no edema Skin: Warm, dry Neurologic: AAOx3, speech fluent and goal-directed, no focal deficits, grossly intact Labs: See below Imaging: Please see imaging section Assessment/plan: 75-year-old female with past medical history of insulin-dependent diabetes mellitus, hyper tension, dyslipidemia, chronic kidney disease stage III, chronic anemia, and obesity was admitted for hypotension, acute kidney injury, rhabdomyolysis, hyponatremia, and cholecystitis. #Acute cholecystitis -No plans for surgical intervention at this time, likely will be done electively as outpatient. #Bactermia -Possible sources include urine and gallbladder. Continue with Zosyn until cultures have resulted. Repeat blood cx on 05/04. #UTI -Plan as above. #Transaminitis -Likely 2/2 to acute cholecystitis. Hep panel is negative. #Rhabdomyolysis -Reports being on the ground for 2 hours. Continue with IV fluids. Trend creatinine kinase. #Acute on chronic kidney disease -Suspect ATN in the setting of rhabdomyolysis. She is making satisfactory urine, continue to trend creatinine. #Hypotension -Resolved. #Chronic lung scarring -Monitor respiratory status #Mya-fymrksp-ahiljpipu diabetes mellitus -Hold oral diabetic medications during hospitalization. Diabetic diet, Accu- Cheks, hypoglycemic protocol, and sliding scale. #Chronic anemia -Resume iron following acute infection #Class I obesity -Complicates care #DVT prophylaxis -Heparin subcu VS,Fishbone, I+O VS, Fishbone, I+O Laboratory Tests 05/03/21 13:49 05/03/21 17:32 05/03/21 21:38 05/04/21 02:41 Vital Signs Date Time Temp Pulse Resp B/P (MAP) Pulse Ox O2 Delivery O2 Flow Rate FiO2 05/04/21 10:00 93 Nasal Cannula 3.0 05/04/21 08:41 68 135/64 05/04/21 08:00 97.1 19 I&O- Last 24 Hours up to 6 AM 05/04/21 06:00 Intake Total 806 ml Output Total 3420 ml Balance -2614 ml MARILU WATSON M.D. May 04, 2021 11:56
[2021-05-04] MEDS ORDERED: POTASSIUM CHLORIDE 10MEQ SR TABLET PO ONE (12:30)
[2021-05-04] MEDS ORDERED: DEXTROSE 50% 50 ML SYRINGE IV PRN (15:05)
[2021-05-04] MEDS ORDERED: GLUCOSE 4GM CHEW TABLET PO PRN (15:05)
[2021-05-04] MEDS ORDERED: GLUCAGON INJ 1MG VIAL SC PRN (15:05)
--- NOTE | 2021-05-04 19:37 | IPN ---
NEPHROLOGY PROGRESS NOTE DATE: 05/04/2021 SUBJECTIVE: Miss Duke is seen and examined this morning at the bedside. She reports she feels better today. Abdominal pain has lessened and appetite is improving. Her renal function likewise is improving with excellent urine output. The patient remains afebrile and hemodynamically stable but is requiring increasing amounts of oxygen via nasal cannula. Sodium has appropriately corrected. OBJECTIVE: PHYSICAL EXAMINATION: VITAL SIGNS: Temperature 97.3, pulse 69, respiratory rate 18, blood pressure 126/58, saturating 95% on 3 liters nasal cannula. INTAKE AND OUTPUT: Intake yesterday was 1.2 liters. Urine output was 1.9 liters. Weight in the bed scale today is 98.1 kg. GENERAL APPEARANCE: The patient is seen awake, alert, oriented x3, comfortable, lying in bed in no distress, elderly female. HEENT: The extraocular muscles are intact. The tongue is moist. NECK: Jugular veins are not elevated. HEART: Sounds are regular, S1, S2. There is no murmur. There is no peripheral edema. LUNGS: Diminished breath sounds at the bases. Otherwise clear. No crackles, rales or rhonchi. She is on nasal cannula. ABDOMEN: Soft and there is mild tenderness in the right upper quadrant. There are bowel sounds. GENITOURINARY: Indwelling Enrique catheter with yellow urine. EXTREMITIES: Negative for clubbing, cyanosis, or edema. NEUROLOGICAL: She is oriented x3, interactive, conversational, moves all four extremities on command. No focal deficits. SKIN: Warm and dry. LABORATORY STUDIES: Sodium 134, potassium 3.6, bicarbonate 19, BUN 89, creatinine 3.6, down from 5.0 on admission. CK 400. Hemoglobin 9.9, white count 14.3. Blood cultures grew gram negative rods times two sets drawn on May 02. Repeat blood cultures today are pending. INPATIENT MEDICATIONS: The patient's normal saline at 40 mL an hour was stopped today evening. She continues on IV Zosyn, Aspirin, Carvedilol 12.5 mg p.o. twice daily, Lopid 600 mg p.o. twice daily, Heparin 5,000 units subcutaneously q. 8 hourly, insulin. She got a dose of potassium 40 mEq p.o. times one. PROBLEMS: 1. Acute kidney injury superimposed on chronic kidney disease stage 3a in the setting of prerenal state/dehydration with concomitant recent bacteremia and sepsis and use of nephrotoxic medications at home (Losartan and Metformin). The patient is in renal recovery. She has excellent urine output now. We will watch for possible polyuria. She has gotten a satisfactory amount of IV fluids and given improving renal function and increasing oxygen requirement, I discontinued the IV fluids this evening. Okay to remove Enrique catheter. 2. Gram negative valarie bacteremia - The patient has positive blood cultures times two sets on admission. Repeat blood cultures are pending. Urine culture is also pending. White count is elevated. She is status post septic shock. She improved nicely with IV fluid bolus. She never needed pressor support. She is broad spectrum antibiotics managed by the Primary Team. She had abnormal gallbladder imaging and plan is for possible outpatient elective cholecystectomy. 3. Status post sepsis secondary to bacteremia - blood pressures have normalized. Holding parameters are now written with Carvedilol. The patient is in renal recovery and is making excellent urine output and IV fluids were stopped this evening. She is tolerating oral intake. 4. Hypovolemic hyponatremia serum sodium is almost within normal range now and by tomorrow I expect it will be normal. The patient is off IV fluids at this time. 5. Chronic anemia we are going to hold off on iron studies at this time given the patient's active bacteremia. There is no need for transfusion at present. 6. Mild rhabdomyolysis resolved. Creatine kinase is less than 500. 7. Anion gap metabolic acidosis - bicarbonate is 19. No need for bicarbonate containing fluids at this time. We will keep an eye on her acid base status. 8. Hypokalemia - potassium supplementation is ordered. 9. Disposition - The patient is improving. She is making a significant amount of urine and I will get a BMP again this evening to keep an eye on her electrolytes.
[2021-05-04 19:57] LABS: CALCIUM LEVEL 10.1 MG/DL (8.8-10.2); CREATININE FOR GFR 2.76 MG/DL (0.55-1.30); GLOMERULAR FILTRATION RATE 17.7 (>39); POTASSIUM SERUM 4.3 MEQ/L (3.5-5.1)
[2021-05-05] VITALS (19 sets, daily range): BP systolic 111–148; BP diastolic 61–97; O2SAT 90–97
[2021-05-05] MEDS: PIPERACILLIN/TAZOBACTAM SOD 2.25 GM in D5W MINI-BAG PLUS 50 ML IV SCH ×2 (03:12→08:39)
[2021-05-05] MEDS ORDERED: METOPROLOL 5 MG/5 ML VIAL IV STA ×3 (04:55→05:25)
[2021-05-05] MEDS ORDERED: ASPIRIN 81 MG CHEW TABLET PO ONE (05:45)
--- NOTE | 2021-05-05 06:10 | IPNPDOC ---
Text Note Date of Service The patient was seen on 05/05/21. NOTE Patient developed new-onset atrial fibrillation at approximately 4:20 AM. P atient did not have any symptoms and her vital signs were within normal limits: SBP 128, except pulse was slightly tachycardic oscillating between 108. Pt denied any feeling of heart palpitations, and denied a history of heart palpitations/diagnosis of paroxysmal atrial fibrillation. An EKG was obtained that showed atrial fibrillation with RVR, new right bundle branch block, left fascicular block(unchanged from last EKG 3 days ago), and T wave inversions in leads V1 through V3. T wave inversions in V2 and V3 were new. Patient was given 324 mg chewable aspirin. Patient was given metoprolol 5 mg IV infused over 2 minutes x 3 at 5-minute intervals. Patient remained asymptomatic except for mild shortness of breath which patient reported was at her baseline. Patient had bibasilar crackles. Chest x-ray, troponin levels, magnesium levels, BMP, calcium levels, and apixaban 5 mg p.o. twice daily were ordered. Patient's VTE prophylaxis Heparin is being held now. Patient was given 1 dose of apixaban 5 mg p.o. at the bedside at that time. Patient's irregular rate decreased to approximately 80 after 3 doses of metoprolol. Echocardiogram was ordered. Etiology of new-onset atrial fibrillation is unknown. Please follow-up on serial troponin levels, BMP, and echocardiogram. I could n ot find prior echocardiogram results, therefore patient's ejection fraction is unknown at this time. Please start maintenance medication for rate-controlled atrial fibrillation management. VS,Fishbone, I+O VS, Fishbone, I+O Laboratory Tests 05/04/21 19:08 Vital Signs Date Time Temp Pulse Resp B/P (MAP) Pulse Ox O2 Delivery O2 Flow Rate FiO2 05/05/21 05:32 128/61 05/05/21 04:00 3.0 05/05/21 04:00 94 Nasal Cannula 05/05/21 04:00 98.6 100 18 I&O- Last 24 Hours up to 6 AM0 05/05/21 06:00 Intake Total 1020 ml Output Total 2200 ml Balance -1180 ml GME ATTESTATION GME ATTESTATION My faculty preceptor for this patient encounter was physically present during the encounter and was fully available. All aspects of the patient interview, examination, medical decision making process, and medical care plan development were reviewed and approved by the faculty preceptor. The faculty preceptor is aware and concurs with the plan as stated in the body of this note and will attest to such by his/her cosignature. Levy Mancia DO May 05, 2021 06:10
--- NOTE | 2021-05-05 06:19 | REPVR ---
PROCEDURE INFORMATION: Exam: XR Chest Exam date and time: 05/05/2021 5:31 AM Age: 75 years old Clinical indication: Other: New onset atrial fibrillation; Additional info: New-onset atrial fibrillation TECHNIQUE: Imaging protocol: XR of the chest. Views: 1 view. COMPARISON: CR PORTABLE CHEST X-RAY 05/02/2021 7:27 PM FINDINGS: Limitations: There are multiple overlying structures. Lungs: The lungs are grossly clear. Pleural spaces: No pleural effusions or pneumothorax identified. Heart/Mediastinum: The heart is again enlarged. Bones/joints: No suspicious osseous lesions. No acute fractures. IMPRESSION: 1. Cardiomegaly. 2. Grossly clear lungs. Electronically signed by: Nelsy Urena On 05/05/2021 06:19:02 AM
[2021-05-05 06:21] LABS: THYROID STIMULATING HORMONE 0.394 uIU/ML (0.358-3.740)
[2021-05-05 07:24] LABS: HEMATOCRIT 32.4 % (36.0-47.0); HEMOGLOBIN 10.9 g/dl (12.0-15.5); MEAN CORPUSCULAR HEMOGLOBIN 30.8 pg (27.0-33.0); MEAN CORPUSCULAR HGB CONC 33.6 g/dl (32.0-36.5); MEAN CORPUSCULAR VOLUME 91.5 fl (80.0-96.0); PLATELET COUNT, AUTOMATED 239 10^3/uL (150-450); RED BLOOD COUNT 3.54 10^6/uL (4.00-5.40); WHITE BLOOD COUNT 13.6 10^3/uL (4.0-10.0)
[2021-05-05 07:37] LABS: ALBUMIN 2.4 GM/DL (3.2-5.2); BILIRUBIN,TOTAL 0.7 MG/DL (0.2-1.0); CALCIUM LEVEL 10.1 MG/DL (8.8-10.2); CREATININE FOR GFR 2.15 MG/DL (0.55-1.30); GLOMERULAR FILTRATION RATE 23.7 (>39); PHOSPHORUS LEVEL 2.9 MG/DL (2.5-4.9); TOTAL PROTEIN 6.2 GM/DL (6.4-8.2)
[2021-05-05] MEDS: ASPIRIN 81MG ENTERIC TABLET PO SCH (08:37)
[2021-05-05] MEDS: CARVedilol 12.5 MG TAB PO SCH ×2 (08:38→22:53)
[2021-05-05] MEDS: APIXABAN 5 MG TAB (ELIQUIS) PO SCH ×2 (08:38→22:54)
[2021-05-05] MEDS: FLUTICASONE PROP 0.05% NASAL SPRAY 16 GM (FLONASE) SCH (08:39)
[2021-05-05] MEDS: HumaLOG INSULIN (NovoLOG) PER UNIT SC SCH ×4 (08:39→21:00)
--- NOTE | 2021-05-05 09:09 | IPNPDOC ---
Text Note Date of Service The patient was seen on 05/05/21. NOTE General surgery. Dr. Pierson. This morning, the patient is resting comfortably in bed. She has not had breakfast yet this morning. She had [place] toast yesterday morning but states she did not have a very good appetite the rest of the day. She denies nausea or vomiting however. She denies abdominal pain. 3 bowel movements recorded yesterday. Temperature 97.1, heart rate 112, respiratory rate 18, blood pressure 111/61, 100% 3 L nasal cannula Awake and alert, sitting up in bed eating breakfast, no acute distress MMM Respirations easy, no wheezing S1-S2 regular rate rhythm Abdomen is soft, nondistended, there is no tenderness on exam today, there is no discomfort in the epigastric area on exam, no tenderness in the right upper quadrant area. No guarding or rebound. WBC this morning 13.6, hemoglobin 10.9. Blood culture x2 E. coli Urine culture E. coli Blood culture x2 pending Assessment/plan Vomiting and diarrhea which seems to have been self-limited, the patient is tolerating soft diet, 3 bowel movements recorded yesterday. Possibly more related to gastroenteritis. Possible acute cholecystitis The patient did have some epigastric discomfort but no right upper quadrant pain on exam but abdominal pain was not one of her prominent symptoms during the diarrhea, nausea or vomiting. She has no abdominal pain at this time. She is tolerating diet. Dr. Pierson has discussed with the patient that she can follow-up as an outpatient for further discussion, could possibly consider outpatient elective cholecystectomy. The patient verbalizes understanding and agreement. Reconsult general surgery if needed. E. coli UTI. Management as per hospitalist. VS,Fishbone, I+O VS, Fishbone, I+O Laboratory Tests 05/04/21 19:08 05/05/21 05:21 05/05/21 06:08 Vital Signs Date Time Temp Pulse Resp B/P (MAP) Pulse Ox O2 Delivery O2 Flow Rate FiO2 05/05/21 08:38 96 111/61 05/05/21 08:00 97.2 18 100 Nasal Cannula 3.0 I&O- Last 24 Hours up to 6 AM 05/05/21 06:00 Intake Total 4920 ml Output Total 2200 ml Balance 2720 ml Kirsty Gee May 05, 2021 09:09
[2021-05-05] MEDS: ceFAZolin SOD 1 GM in D5W MINI-BAG PLUS 50 ML IV SCH ×2 (16:04→22:54)
--- NOTE | 2021-05-05 16:56 | ECGEPIP ---
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 Electronically Signed on 05-05-2021 16:56:31 EST by Edin Zapien
--- NOTE | 2021-05-05 18:50 | IPNPDOC ---
Text Note Date of Service The patient was seen on 05/05/21. NOTE Subjective: 75-year-old female initially presented emergency room department following a fall. She reports having nausea, vomiting, diarrhea, myalgias and chills which had somewhat resolved but her malaise continues. She attributes her lower extremity neuropathy in her recent onset of generalized weakness contributing to her fall. She was admitted for hypotension, acute kidney injury, rhabdomyolysis, electrolyte abnormalities, and transaminitis. Overnight, she had an episode of atrial fibrillation with rapid ventricular response that responded to beta-blockers. She was also placed on systemic anticoagulation. Today, she reports significant improvement in her initial symptoms. She denies chest pain, palpitation, shortness of breath, abdominal pain, nausea, vomiting, problems with urination and bowel movements. Review of systems: 10 point review of system was negative except for what is noted in the HPI Physical exam: General: Lying in bed, no acute distress Head/Neck/Throat: Trachea midline, mucous membranes moist Eyes: Sclera anicteric, no erythema or discharge appreciated bilaterally Thorax: Normal respiratory effort on room air, lungs clear to auscultation bilaterally, no wheezes/rales/rhonchi Cardiovascular: Irregularly irregular rhythm at 92 bpm, normal S1, S2; no S3, S4, rubs/gallops/murmurs Abdomen: Bowel sounds present, soft, nondistended, tenderness reported in the epigastric region Genitourinary: No CVA tenderness, no Enrique in place Musculoskeletal: Moving all extremities, no edema Skin: Warm, dry Neurologic: AAOx3, speech fluent and goal-directed, no focal deficits, grossly intact Labs: See below Imaging: Please see imaging section Assessment/plan: 75-year-old female with past medical history of insulin-dependent diabetes mellitus, hyper tension, dyslipidemia, chronic kidney disease stage III, chronic anemia, and obesity was admitted for hypotension, acute kidney injury, rhabdomyolysis, hyponatremia, and cholecystitis. #New onset atrial fibrillation -Continue with carvedilol for rate control. Eliquis for systemic anticoagulation. Risks and benefits of systemic anticoagulation explained to patient. -EKG showed no ST/T wave changes. Troponin trend was negative. Echocardiogram pending. #Acute cholecystitis -No plans for surgical intervention at this time, likely will be done electively as outpatient. #Bacteremia -Patient's blood cultures consistent with E. coli which also grew in her urine. Will narrow antibiotics to cefazolin based on sensitivities. Repeat blood cultures from 05/04 are negative thus far. #UTI -Plan as above. #Transaminitis -Likely 2/2 to acute cholecystitis. Hep panel is negative. #Rhabdomyolysis -Reports being on the ground for 2 hours. Continue with IV fluids. Trend creatinine kinase. #Acute on chronic kidney disease -Suspect ATN in the setting of rhabdomyolysis. She is making satisfactory urine, continue to trend creatinine. #Hypotension -Resolved. #Chronic lung scarring -Monitor respiratory status #Woj-[id number]-[id number] diabetes mellitus -Hold oral diabetic medications during hospitalization. Diabetic diet, Accu- Cheks, hypoglycemic protocol, and sliding scale. #Chronic anemia -Resume iron following acute infection #Class I obesity -Complicates care #DVT prophylaxis -Heparin subcu Disposition: If patient's repeat blood cultures remain negative in the next 24 hours she can be discharged. Echocardiogram read is pending. VS,Fishbone, I+O VS, Fishbone, I+O Laboratory Tests 05/04/21 19:08 05/05/21 05:21 05/05/21 06:08 Vital Signs Date Time Temp Pulse Resp B/P (MAP) Pulse Ox O2 Delivery O2 Flow Rate FiO2 05/05/21 16:00 97.1 90 18 141/80 (100) 98 Nasal Cannula 2.0 I&O- Last 24 Hours up to 6 AM 05/05/21 06:00 Intake Total 4920 ml Output Total 2200 ml Balance 2720 ml MARILU WATSON M.D. May 05, 2021 18:50
--- NOTE | 2021-05-05 18:52 | IPN ---
NEPHROLOGY PROGRESS NOTE DATE: 05/05/2021 SUBJECTIVE: Leilani is seen and examined this morning at the bedside. She reports she feels better today. She is off of nasal cannula at the time of my visit this morning. She denies any nausea or vomiting. She denies abdominal pain. Renal function is improving. She had an episode of atrial fibrillation with rapid ventricular response this morning and was given intravenous (IV) metoprolol and was fairly asymptomatic. PHYSICAL EXAMINATION: VITAL SIGNS: Temperature 96.9, pulse 90-105, respiratory rate 18, blood pressure 117/74, saturating 91-96% on room air. INTAKE AND OUTPUT: Intake yesterday was 1.9 liters. Urine output yesterday was 3.8 liters. Weight in the bed scale today is not recorded. GENERAL: Patient is seen lying in bed, elderly female, awake, alert, oriented times three, comfortable, in no distress. HEENT: Extraocular muscles are intact. Pupils are reactive to light. Tongue is moist. NECK: Supple. Jugular veins are not elevated. HEART SOUNDS: Irregularly irregular and mildly tachycardic. LUNGS: Good breath sounds bilaterally with faint bibasilar crackles. There is no accessory muscle use. No tachypnea. She is comfortable on room air at the time of my visit. ABDOMEN: Soft, obese and nontender. There are bowel sounds. GENITOURINARY: Her Enrique catheter has been removed. She is voiding freely. EXTREMITIES: Negative for clubbing, cyanosis and edema. NEUROLOGIC: She is oriented times three, interactive, conversational. No focal deficit. Moves all four extremities on command PSYCHIATRIC: Appropriate mood and affect. LABORATORY STUDIES: White count 13.6, hemoglobin 10.9, platelets 239. Sodium 137, potassium 4.0, bicarbonate 20, BUN 74, creatinine 2.1, calcium 10.2, magnesium 2.0. Troponin is negative. MICROBIOLOGY: Repeat blood cultures: No growth for 24 hours times two sets, drawn on May 04, 2021. Initial blood culture on May 02, 2021 grew Escherichia (E) coli times two sets. Urine culture also grew Escherichia (E) coli. IMAGING: Chest x-ray this morning showed cardiomegaly and clear lungs without any pleural effusion. INPATIENT MEDICATIONS: Reviewed by myself. Patient is on intravenous (IV) cefazolin. She is on: - Eliquis 5 mg by mouth twice a day - aspirin 81 mg by mouth daily - carvedilol 12.5 mg by mouth twice a day - Lopid 600 mg twice daily - insulin - She received three doses of metoprolol 5 mg IV. PROBLEMS: 1. Acute kidney injury superimposed on chronic kidney disease (CKD) stage IIIA. It is in the setting of recent urosepsis and dehydration. Patient is clinically improved. She is status post IV fluids. Normal saline was stopped yesterday. She is tolerating oral intake well. She is in renal recovery. Enrique catheter was removed yesterday. Patient has adequate urine output and I expect renal function will continue to improve over the coming 48 hours. Her repeat blood cultures are now negative. 2. Escherichia (E) coli urosepsis. Patient had blood and urine cultures both positive for Escherichia (E) coli. She is status post aggressive IV fluid hydration. She is off of IV fluids now. She is tolerating oral intake. She is on IV cefazolin at this point. Antibiotic is managed by the primary team. Repeat blood cultures drawn yesterday are negative. She remains afebrile and her white count is downtrending. 3. Status post septic shock. Patient initially had systolic blood pressure in the 70s in the setting of Escherichia (E) coli urosepsis. I had stopped her verapamil on admission and I had continued carvedilol with holding parameters. She went into atrial fibrillation with rapid ventricular response. She received metoprolol this morning as well. Her blood pressure now is stable, systolic 110-140s and her heart rate is fairly controlled. Primary team started her on anticoagulation. 4. Chronic anemia. Hemoglobin has improved to 10.9 on the latest labs. No specific intervention is needed at present. Iron stores were not checked on this admission because of active infection. 5. Hypovolemic hyponatremia. It is resolved. Today, the patient's sodium level is within normal range. It has come up from 126 on admission three days ago to 137 now. She is off of IV fluids at this point. She is on no fluid restriction.
[2021-05-06] VITALS (11 sets, daily range): BP systolic 124–130; BP diastolic 72–82; O2SAT 90–92
[2021-05-06] MEDS: ceFAZolin SOD 1 GM in D5W MINI-BAG PLUS 50 ML IV SCH (05:48)
[2021-05-06 09:09] LABS: HEMATOCRIT 34.8 % (36.0-47.0); HEMOGLOBIN 11.6 g/dl (12.0-15.5); MEAN CORPUSCULAR HEMOGLOBIN 31.2 pg (27.0-33.0); MEAN CORPUSCULAR HGB CONC 33.3 g/dl (32.0-36.5); MEAN CORPUSCULAR VOLUME 93.5 fl (80.0-96.0); PLATELET COUNT, AUTOMATED 263 10^3/uL (150-450); RED BLOOD COUNT 3.72 10^6/uL (4.00-5.40); WHITE BLOOD COUNT 10.9 10^3/uL (4.0-10.0)
[2021-05-06 09:25] LABS: CALCIUM LEVEL 9.7 MG/DL (8.8-10.2); CREATININE FOR GFR 1.44 MG/DL (0.55-1.30); GLOMERULAR FILTRATION RATE 37.6 (>39); MAGNESIUM LEVEL 1.7 MG/DL (1.8-2.4); PHOSPHORUS LEVEL 2.8 MG/DL (2.5-4.9); POTASSIUM SERUM 3.4 MEQ/L (3.5-5.1)
[2021-05-06] MEDS: APIXABAN 5 MG TAB (ELIQUIS) PO SCH (09:36)
[2021-05-06] MEDS: FLUTICASONE PROP 0.05% NASAL SPRAY 16 GM (FLONASE) SCH (09:36)
[2021-05-06] MEDS: HumaLOG INSULIN (NovoLOG) PER UNIT SC SCH (09:36)
[2021-05-06] MEDS: CARVedilol 12.5 MG TAB PO SCH (09:37)
[2021-05-06] MEDS: ASPIRIN 81MG ENTERIC TABLET PO SCH (09:37)
[2021-05-06] MEDS ORDERED: MAGNESIUM OXIDE 400MG TAB (MAG-OX) PO ONE (10:05)
[2021-05-06] MEDS ORDERED: POTASSIUM CHLORIDE 10MEQ SR TABLET PO ONE (10:05)
[2021-05-06] MEDS ORDERED: ELIQ5TAB PO (10:08)
[2021-05-06] MEDS ORDERED: LASI40TA9 PO (10:08)
[2021-05-06] MEDS ORDERED: CEPH500C PO (10:08)
[2021-05-06] MEDS ORDERED: VERA240T65 PO (10:08)
--- NOTE | 2021-05-06 11:51 | DS.PDOC ---
Discharge Summary General Date of Admission May 02, 2021 at 22:06 Date of Discharge 05/06/21 Discharge Summary DISCHARGE DIAGNOSES: 1. New atrial fibrillation 2. Bacteremia 4. Urinary tract infection 5. Acute cholecystitis 6. Transaminitis 7. Electrolyte abnormality 8. Hypotension COMPLICATIONS/CHIEF COMPLAINT: Acute Renal Failure,Hypotension,Rhabdomyolysis. HOSPITAL COURSE: Ms. Mejia, is a 75-year-old female who presented to emergency room department with generalized malaise, fever and chills as well as nausea, vomiting, and diarrhea. Her past medical history of IDDM, Essential HTN, DLP, CKD 3, Class 1 obesity, CKD 3, Chronic Anemia, Hiatal Hernia, Right total knee surgery, Bunionectomy, Tubal ligation, Hemorrhoidectomy, Tonsillectomy, Back Surgery, Bilateral Cataract surgery. Noted to have a urinary tract infection and positive blood cultures for E. coli. This was likely to contributing factor to her symptoms. She was treated with IV antibiotics which were narrowed based on sensitivities. She will complete a course of cephalexin upon discharge. She had acute kidney injury which was attributed to her poor p.o. intake in the setting of being on an to ARB's as well as Lasix. Her losartan was discontinued. She was asked to resume her valsartan as well as furosemide in 2 to 3 days of discharge. She was told that her renal function was improving as her creatinine was downtrending. However, she was advised to have repeat blood work done to ensure that her renal function remains stable. She is asked to follow-up with nephrology team. Asked to follow-up with her primary care physician to have her electrolytes rechecked as she was noted to have hypokalemia and hypomag. These were supplemented during hospitalization. During hospitalization it was noted that she had transaminitis. An ultrasound of the abdomen was done that showed findings that were consistent with acute cholecystitis. However, this was evaluated by the surgical team and it was felt that this could be followed up as outpatient for an elective cholecystectomy. At the time of discharge her transaminitis had resolved. She was monitored on telemetry and noted to go into atrial fibrillation with rapid ventricular response. Her heart rate was controlled with her ambulatory carvedilol, and she was started on apixaban 5 mg twice daily. She was educated about being on systemic anticoagulations. She was willing to accept all bleeding risks. Of note, patient encouraged to obtain all imaging results for her records as well as follow-up step may be required. DISCHARGE MEDICATIONS: Please see below. ALLERGIES: Please see below. PHYSICAL EXAMINATION ON DISCHARGE: VITAL SIGNS: Please see below. General: Lying in bed, no acute distress Head/Neck/Throat: Trachea midline, mucous membranes moist Eyes: Sclera anicteric, PERRLA Thorax: Normal respiratory effort on room air, lungs clear to auscultation bilaterally, no wheezes/rales/rhonchi Cardiovascular: Normal rate, regular rhythm, normal S1, S2; no S3, S4, rubs/gallops/murmurs Abdomen: Bowel sounds present, soft/nontender/nondistended Genitourinary: No CVA tenderness, no Enrique in place Musculoskeletal: Moving all extremities, no edema Skin: Warm, dry Neurologic: AAOx3, speech fluent and goal-directed, no focal deficits, grossly intact LABORATORY DATA: Please see below. IMAGING: PORTABLE CHEST X-RAY Lungs: The lungs are grossly clear. Pleural spaces: No pleural effusions or pneumothorax identified. Heart/Mediastinum: The heart is again enlarged. Bones/joints: No suspicious osseous lesions. No acute fractures. IMPRESSION: 1. Cardiomegaly. 2. Grossly clear lungs. ABD COMPLETE US FINDINGS: Liver: Normal. No mass. Gallbladder: Gallstones, gallbladder wall thickening measuring 7 mm, and gallbladder distension, 12 cm in greatest diameter.. Evidence for acute cholecystitis. Common bile duct: Normal common biliary duct diameter of 6 mm. Pancreas: Visualized pancreas is unremarkable. Right kidney: Normal. No mass. No hydronephrosis. Left kidney: Normal. No mass. No hydronephrosis. Spleen: Unremarkable 10 cm spleen. Aorta: Normal caliber aorta measuring up to 2.6 cm. Inferior vena cava: Normal. Intraperitoneal space: Small amount of fluid located within the right upper quadrant. IMPRESSION: Small amount of fluid located within the right upper quadrant. Gallstones, gallbladder wall thickening measuring 7 mm, and gallbladder distension, 12 cm in greatest diameter.. Evidence for acute cholecystitis. PROGNOSIS: Good ACTIVITY: As tolerated ITEMS TO FOLLOWUP ON ON OUTPATIENT: As explained above. DISCHARGE CONDITION: Stable TIME SPENT ON DISCHARGE: 30 minutes. Vital Signs/I&Os Vital Signs Date Time Temp Pulse Resp B/P (MAP) Pulse Ox O2 Delivery O2 Flow Rate FiO2 11/20/21 09:37 100 124/72 05/06/21 07:43 97.2 18 97 Room Air 05/05/21 16:00 2.0 I&O- Last 24 Hours up to 6 AM 05/06/21 06:00 Intake Total 1500 ml Output Total 1200 ml Balance 300 ml Laboratory Data Labs 24H Laboratory Tests 2 05/05/21 12:46: Troponin I < 0.02 05/05/21 17:41: Bedside Glucose (Misc Panel) 152H 05/05/21 18:38: Troponin I < 0.02 05/05/21 20:46: Bedside Glucose (Misc Panel) 161H 05/06/21 05:00: Nucleated Red Blood Cells % (auto) 0.2H, Anion Gap 12, Glomerular Filtration Rate 37.6L, Calcium Level 9.7, Phosphorus Level 2.8, Magnesium Level 1.7L, Total Creatine Kinase 47 05/06/21 08:01: Bedside Glucose (Misc Panel) 154H CBC/BMP Laboratory Tests 05/06/21 05:00 FSBS Laboratory Tests Test 05/05/21 17:41 05/05/21 20:46 05/06/21 08:01 Range/Units Bedside Glucose (Misc Panel) 152 161 154 83-110 MG/DL Microbiology Microbiology 05/04/21 Blood Culture - Preliminary, Resulted No growth after 24 hours . All specim... 05/04/21 Blood Culture - Preliminary, Resulted No growth after 24 hours . All specim... 05/03/21 Urine Culture - Final, Complete Escherichia Coli 05/02/21 Blood Culture - Final, Complete Escherichia Coli 05/02/21 Blood Culture - Final, Complete Escherichia Coli Discharge Medications Scheduled Apixaban (Eliquis) 5 Mg Tablet, 5 MG PO BID Aspirin (Aspirin EC) 81 Mg Tab, 81 MG PO DAILY, (Reported) Atorvastatin Calcium (Lipitor) 80 Mg Tab, 80 MG PO QHS, (Reported) Carvedilol (Coreg) 12.5 Mg Tab, 12.5 MG PO BID, (Reported) Cephalexin (Cephalexin) 500 Mg Capsule, 500 MG PO QID Ferrous Sulfate (Ferrous Sulfate) 325 Mg Tablet, 650 MG PO DAILY, (Reported) Fluticasone Propionate (Flonase Allergy Relief) 50 Mcg/Act Spr, 2 SPRAYS NA DAILY, (Reported) Furosemide (Lasix) 40 Mg Tab, 40 MG PO DAILY Resume taking on 05/09 Gemfibrozil (Lopid) 600 Mg Tablet, 600 MG PO BID, (Reported) Glipizide (Glipizide) 5 Mg Tab, 5 MG PO BID, (Reported) Loratadine (Loratadine) 10 Mg Tablet, 10 MG PO QHS, (Reported) Metformin HCl (Metformin HCl) 1,000 Mg Tab, 1,000 MG PO BID, (Reported) Pantoprazole Sodium (Protonix) 40 Mg Tab, 40 MG PO DAILY, (Reported) Potassium Chloride (Potassium Chloride) 8 Meq Tablet.er, 8 MEQ PO QHS, (Reported) Semaglutide (Ozempic) 0.25 Mg/0.2 Ml Pen.injctr, 0.5 MG SC QWEEK, (Reported) EVERY SATURDAY @ 1200 Verapamil HCl (Verapamil ER) 240 Mg Tablet.er, 240 MG PO DAILY Resume taking on 05/09/21 allopurinoL (allopurinoL) 300 Mg Tablet, 300 MG PO QHS, (Reported) Scheduled PRN Carboxymethylcellulose Sodium (Refresh Tears) 15 Ml Drops, 1 DROP OU QID PRN for DRY EYES, (Reported) Allergies Coded Allergies: No Known Allergies (Verified , 09/04/18) MARILU WATSON M.D. May 06, 2021 11:51
--- NOTE | 2021-05-06 11:59 | IPNPDOC ---
Subjective Date Seen The patient was seen on 05/06/21. Subjective Chief Complaint/HPI Leilani is seen and examined this morning and she's sitting up in her chair on RA without any acute distress. She states she continues to feel better. Inquired about her ECHO results. She denies any abdominal pain, n/v/d or increased in lower extremity edema. She had new onset afib with RVR 2 nights ago and was given IV metroprolol which she is tolerating without any side effects. OBJECTIVE: VS: SEE BELOW Ins and outs: GENERAL: Elderly female well nourished and hydrated, NAD. conversational and very pleasant. AAOx3. HEENT: Extraocular muscles are intact. Pupils are reactive to light. Tongue is moist. NECK: Supple. Jugular veins are not elevated. HEART SOUNDS: Irregularly irregular and mildly tachycardic (100). LUNGS: Good breath sounds bilaterally with faint bibasilar crackles. There is no accessory muscle use. No tachypnea. She is comfortable on room air at the time of my visit. ABDOMEN: Soft, obese and nontender. There are bowel sounds. GENITOURINARY: Li has been removed. EXTREMITIES: Negative for clubbing, cyanosis and edema. PSYCHIATRIC: Appropriate mood and affect IMPRESSION AND PLAN: 1. Acute kidney injury superimposed on chronic kidney disease (CKD) stage IIIA. It is in the setting of recent urosepsis and dehydration. Patient is clinically improved. She;s s/p IV fluids and has been tolerating PO fluid intake. She is tolerating oral intake well. Her Cr continues to improve. Her li was removed and she's making good amounts of urine on her own without any issues or dysuria. Recommended nephrology follow up to be arranged at discharge. 2. Escherichia (E) coli urosepsis. Patient had blood and urine cultures both positive for Escherichia (E) coli. Her repeat blood cultures are now negative. She is s/p aggressive IV fluid hydration. She is off of IV fluids now and is tolerating oral intake. On IV cefazolin per primary. She's been afebrile and her white count is downtrending. 3. Status post septic shock. Patient initially had systolic blood pressure in the 70s in the setting of Escherichia (E) coli urosepsis. Her verapimil on admission as d/c'd with continuation of carvediolo with hold parameters. She's on IV toprol for rate control for new onset afib rvr. She's mildly tachycardic 100 with SBPs in 120s. Fairly asymptomatic currently. She went into atrial fibrillation with rapid ventricular response. AC per primary started. 4. Chronic anemia. Hemoglobin has improved to 10.9 on the latest labs. No specific intervention is needed at present. Iron stores were not checked on this admission because of active infection. F/u with nephrology outpatient. 5. Hypovolemic hyponatremia. Resolved. Today, the patient's sodium level is within normal range. It has come up from 126 on admission three days ago to 137 now. She is off of IV fluids at this point. She is on no fluid restriction. VS, I&O, 24H, Fishbone Vital Signs/I&O Vital Signs Date Time Temp Pulse Resp B/P (MAP) Pulse Ox O2 Delivery O2 Flow Rate FiO2 05/06/21 09:37 100 124/72 05/06/21 07:43 97.2 18 97 Room Air 05/05/21 16:00 2.0 I&O- Last 24 Hours up to 6 AM 05/06/21 06:00 Intake Total 1500 ml Output Total 1200 ml Balance 300 ml Laboratory Data 24H LABS Laboratory Tests 2 05/05/21 12:46: Troponin I < 0.02 05/05/21 17:41: Bedside Glucose (Misc Panel) 152H 05/05/21 18:38: Troponin I < 0.02 05/05/21 20:46: Bedside Glucose (Misc Panel) 161H 05/06/21 05:00: Nucleated Red Blood Cells % (auto) 0.2H, Anion Gap 12, Glomerular Filtration Rate 37.6L, Calcium Level 9.7, Phosphorus Level 2.8, Magnesium Level 1.7L, Total Creatine Kinase 47 05/06/21 08:01: Bedside Glucose (Misc Panel) 154H CBC/BMP Laboratory Tests 05/06/21 05:00 Microbiology Microbiology 05/04/21 Blood Culture - Preliminary, Resulted No growth after 24 hours . All specim... 05/04/21 Blood Culture - Preliminary, Resulted No growth after 24 hours . All specim... 05/03/21 Urine Culture - Final, Complete Escherichia Coli 05/02/21 Blood Culture - Final, Complete Escherichia Coli 05/02/21 Blood Culture - Final, Complete Escherichia Coli GME ATTESTATION GME ATTESTATION My faculty preceptor for this patient encounter was physically present during the encounter and was fully available. All aspects of the patient interview, examination, medical decision making process, and medical care plan development were reviewed and approved by the faculty preceptor. The faculty preceptor is aware and concurs with the plan as stated in the body of this note and will attest to such by his/her cosignature. Eulogio Trejo DO May 06, 2021 11:59
--- NOTE | 2021-05-06 13:45 | ECHO ---
ECHOCARDIOGRAM DATE OF PROCEDURE: 05/05/2021 Age: Gender: Female Height: 165 cm Weight: 98 kg REFERRING PHYSICIAN: Kulwant Mancia M.D. INDICATION: Cardiac dysrhythmia. MEASUREMENTS: IVS 1.0 cm LV 4.7 cm LVPW 1.0 cm LA 4.4 cm Aorta 3.5 cm FINDINGS: This study is of fair technical quality with visualization. Patient is in atrial fibrillation with ventricular rate around 100 beats per minute and a wide QRS complex. Left ventricle is normal size. Overall probably normal contractility based on somewhat limited views. I estimate ejection fraction (EF) around 65%. Right ventricle is dilated and hypokinetic. There is severe biatrial enlargement. Aortic valve is tricuspid. It is significantly sclerotic, but mobility of cusps seems preserved. Mitral valve was relatively poorly visualized. There are some degenerative abnormalities noted, but mobility of leaflets seems to be grossly intact. Tricuspid and pulmonic valves appear normal. Small noncompressive pericardial effusion is noted. Inferior vena cava is normal size and appropriate and collapses with inspiration, indicative of normal central venous pressure. Aortic root is normal. Aortic arch and abdominal aorta were poorly visualized. Doppler interrogation of aortic valve reveals no significant stenosis and trace insufficiency. There is approximately moderate, very eccentric mitral insufficiency, most likely due to anterior mitral leaflet prolapse, even though it was not well seen by 2D imaging. There is also approximately moderate tricuspid insufficiency. Calculated pulmonary artery pressure is in the 40s, corresponding to moderate pulmonary hypertension. Pulmonic valve is functionally competent. Evaluation of diastolic function is inconclusive due to underlying atrial fibrillation. CONCLUSIONS: 1. Study is of fair technical quality. Underlying atrial fibrillation with wide QRS complex and ventricular rate around 100 beats per minute. 2. Normal left ventricular (LV) size with preserved LV systolic function. 3. Dilated hypokinetic right ventricle. 4. Severe biatrial enlargement. 5. Aortic sclerosis without significant stenosis and trace insufficiency. 6. Approximately moderate mitral insufficiency, likely related to anterior mitral leaflet prolapse. 7. Moderate tricuspid insufficiency. 8. Likely normal central venous pressure, but moderate pulmonary hypertension. 9. Small noncompressive pericardial effusion. MTDD
== END 2021-05-06 14:23 | disposition home health service (06) | DRG 444 ==
LOC: M ED 18:04 → M ED INP 22:06 → M PCU 05-04 02:34
PROVIDERS: ADMIT Internal Medicine; ATTEND Internal Medicine
DX: K81.0 Acute cholecystitis (principal); N17.0 Acute kidney failure with tubular necrosis; M62.82 Rhabdomyolysis; E87.1 Hypo-osmolality and hyponatremia; E87.2 Acidosis; N39.0 Urinary tract infection, site not specified; R78.81 Bacteremia; I95.9 Hypotension, unspecified; N18.31 Chronic kidney disease, stage 3a; I48.91 Unspecified atrial fibrillation; K44.9 Diaphragmatic hernia without obstruction or gangrene; E11.9 Type 2 diabetes mellitus without complications; E66.9 Obesity, unspecified; I12.9 Hypertensive chronic kidney disease with stage 1 through stage 4 chronic kidney disease, or unspecified chronic kidney disease; D64.9 Anemia, unspecified; Z98.41 Cataract extraction status, right eye; Z98.42 Cataract extraction status, left eye; B96.29 Other Escherichia coli [E. coli] as the cause of diseases classified elsewhere; Z79.82 Long term (current) use of aspirin; Z79.899 Other long term (current) drug therapy; Z79.4 Long term (current) use of insulin; M10.9 Gout, unspecified; Z87.891 Personal history of nicotine dependence; E78.5 Hyperlipidemia, unspecified; Z96.651 Presence of right artificial knee joint; E87.6 Hypokalemia

== ENCOUNTER 2021-05-17 15:09 | Emergency (ER) | payer MEDICARE ==
[~2021-05-17] VITALS: Ht 162.6 cm; Wt 94.0 kg
[~2021-05-17 15:09] MED LIST changes: +ALLO300T2 PO; +CEPH500C PO; +ELIQ5TAB PO; +FERR1TAB8 PO; +LORA-930 PO; +OZEM2INJ; +OZEM2INJ SC; +POTA1TAB21 PO; +REFR0.5D8 OU; +VERA240T65 PO
[2021-05-17] MEDS ORDERED: SODIUM BICARBONATE 4.2% INJ 10 ML SYRINGE ONE (15:10)
[2021-05-17] MEDS ORDERED: EPINEPHrine 1MG/10ML SYRINGE 1.5IN ONE ×2 (15:10)
[2021-05-17] MEDS ORDERED: SODIUM BICARBONATE 8.4% INJ 50 ML SYRINGE ONE (15:10)
[2021-05-17] MEDS ORDERED: PIPERACILLIN/TAZOBACTAM SOD 4.5 GM in D5W MINI-BAG PLUS 50 ML IV ONE (15:20)
[2021-05-17] MEDS ORDERED: NS IV ONE (15:20)
[2021-05-17 15:39] LABS: VENOUS PARTIAL PRESSURE CO2 32.2 mmHg (38.0-50.0); VENOUS PARTIAL PRESSURE O2 38.2 mmHg (30.0-50.0); VENOUS PH 7.188 UNITS (7.330-7.430); VENOUS STANDARD HCO3 12.3 MEQ/L
--- NOTE | 2021-05-17 15:47 | REP ---
INDICATION: SEPSIS/SHOCK. COMPARISON: 05/05/2021 also portable TECHNIQUE: Portable FINDINGS: The technique utilized in obtaining the radiograph has magnified the cardiac silhouette and accentuated the interstitial markings. In addition, the lung guzmán are hypoexpanded. The cardiomediastinal silhouette is unchanged. There is cardiomegaly accentuated by technique status quo. The lung guzmán appear stable. No acute patchy parenchymal opacities or pleural effusions seem to have developed on this limited portable exam. IMPRESSION: No significant change from the prior exam. Consider PA and lateral views of the chest. <Electronically signed by Bart Navarro > 05/17/21 [id number]
[2021-05-17 15:48] LABS: BASO # 0.1 10^3/uL (0.0-0.2); BASO % 0.4 % (0.0-1.0); EOS % 0.3 % (0.0-3.0); HEMATOCRIT 27.5 % (36.0-47.0); HEMOGLOBIN 8.8 g/dl (12.0-15.5); LYMPH # 2.4 10^3/uL (1.5-5.0); LYMPH % 19.5 % (24.0-44.0); MEAN CORPUSCULAR HEMOGLOBIN 31.1 pg (27.0-33.0); MEAN CORPUSCULAR VOLUME 97.2 fl (80.0-96.0); MONO # 1.2 10^3/uL (0.0-0.8); MONO % 9.6 % (2.0-8.0); NEUTROPHILS # 8.3 10^3/uL (1.5-8.5); NEUTROPHILS % 68.3 % (36.0-66.0); PLATELET COUNT, AUTOMATED 301 10^3/uL (150-450); RED BLOOD COUNT 2.83 10^6/uL (4.00-5.40); WHITE BLOOD COUNT 12.1 10^3/uL (4.0-10.0)
--- OUTSIDE RECORDS SUMMARY | 2021-05-17 15:52 | CCD ---
Author Author [facility] Organization [facility] Address Unknown Phone Unavailable Care Team Providers Care Power Builder Developer Name Role Phone Ezra B Vaishnavi ADAMS Unavailable Unavailable Fish B Vaishnavi ADAMS Unavailable Unavailable Fish B Vaishnavi ADAMS Unavailable Unavailable Fish B Vaishnavi ADAMS Unavailable Unavailable Fish B Vaishnavi ADAMS Unavailable Unavailable Fish B Vaishnavi ADAMS Unavailable Unavailable Fish B Vaishnavi ADAMS Unavailable Unavailable Fish B Vaishnavi ADAMS Unavailable Unavailable Fish B Vaishnvai ADAMS Unavailable Unavailable Fish B Vaishnavi ADAMS [...] B Vaishnavi ADAMS Unavailable Unavailable Fish B Vaihsnavi ADAMS Unavailable Unavailable Fish B Vaishnavi ADAMS Unavailable Unavailable Fish B Vaishnavi ADAMS Unavailable Unavailable Fish B Vaishnavi ADAMS Unavailable Unavailable Fish B Vaishnavi ADAMS Unavailable Unavailable Fish B Vaishnavi ADAMS Unavailable Unavailable Fish Trini Riggins MD Unavailable Unavailable Fish, B Vaishnavi MD Unavailable Unavailable Fish, B Vaishnavi ADAMS Unavailable [...] is protected by Article 27-F of the [facility] Public Health law. If you continue you may have access to information: Regarding HIV / AIDS; Provided by facilities licensed or operated by the [facility] Office of Mental Health; or Provided by the [facility] Office for People With Developmental Disabilities. If such information is present, then the following [facility] mandated warning applies: This information has been [...] law may result in a fine or intermediate sentence or both. A general authorization for the release of medical or other information is NOT sufficient authorization for further disc losure. Allergies and Adverse Reactions Type Description Substance Reaction Status Data Source(s ) Allergy to substance No Known Allergies No known allergies (situation ) [facility] (Edin Paul MD [facility]) Allergy to substance No Known Allergies No known allergies (situation ) [facility] (Edin Paul MD [facility]) Family History Family Member Name Family Member Gender Family Member Status Date o f Status Description Data Source(s) Unknown Unknown Problem [facility] ([facility], ) Unknown Male Problem [facility] ([facility]) Encounters Encounter Providers Location Date Indications Data Source(s ) Outpatient Attender: Vaishnavi Munguia MD Physical Therapy 03/21 10:00:00 AM EDT [facility] ([facility] ) OFFICE OUTPATIENT NEW 60 MINUTES Attender: Vaishnavi Munguia MD Physi jorge Therapy 11/28/2020 01:00:00 PM EDT [facility] ([facility]) <td ID="encounterTypeDescriptionID0">9 M ont Follow-Up</td><td>Angela Green DO</td><td>Edin Kelley MD [facility]</td><td>09/13/2020</td><td>12:28PM</td><td>1:05PM</td><td><content ID="encounterDiagnosisID0-0">Glaucoma Open-angle Primary</content>, <content ID="encounterDiagnosisID0-1">Dry Eye Syndrome</content>, <content ID="encounterDiagnosisID0-2">Pseudophakia</content>, <content ID="encounterDiagnosisID0-3">Assessment of Taking Medication For Diabetes Long- term Use of Oral Hypoglycemics</content>, <content ID="encounterDiagnosisID0-4"> Diabetes Mellitus Type 2 Without Complication</content></td>Outpatient Attender: ANGELA Villa MD [facility] 09/13/2020 12:28:00 PM EDT - 09/13/2020 01:05:00 PM EDT PseudophakiaPseudophakiaDiabetes Mellitu s Type 2 Without ComplicationAssessment of Taking Medication For Diabetes Long-term Use of Oral HypoglycemicsDry Eye SyndromeGlaucoma Open-angle PrimaryDiabetes Mellitus Type 2 Without ComplicationAssessment of Taking Medication For Diabetes Long-term Use of Oral HypoglycemicsDry Eye SyndromeGlaucoma Open-angle Primary [facility] (Edin Paul MD [facility]) Pseudophakia Pseudophakia Diabetes Mellitus Type [...] Complete: YESThis Data wa s Submitted to [facility] Via [facility]. COVID-19 VACCINE Pfizer 08/06/2020 12:00:00 AM EST completed [facility] Vaccine Series Complete: YESThis Data wa s Submitted to [facility]. COVID-19 VACCINE Pfizer 07/16/2020 12:00:00 AM EST completed [facility]IS Vaccine Series Complete: NOThis Data was Submitted to [facility] [employer]. Medications Medication Brand Name Start Date Product Form Dose Route Admi nistrative Instructions Pharmacy Instructions Status Indications Reaction Description Data Source(s) 100,000 unit/mL 05/08/2021 12:00:00 AM EST suspension 120 TAKE 1 ML BY MOUTH FOUR TIMES A DAY TAKE 1 ML BY MOUTH FOUR TIMES A DAY SOLD: 05/08/2021 [facility] 5 mg 05/06/2021 12:00:00 AM EST tablet 60 TAKE ONE TABLET BY MOUTH TWICE A DAY TAKE ONE TABLET BY MOUTH TWICE A DAY SOLD: 05/06/2021 [facility] Cephalexin 500 MG Oral Capsule CEPHALEXIN 05/06/2021 12:00:00 AM EST capsule 40 TAKE ONE CAPSULE BY MOUTH FOUR TIMES A DAY TAKE ONE CA PSULE BY MOUTH FOUR TIMES A DAY SOLD: 05/06/2021 [facility] 240 mcg/0.7 mL 03/02/2021 12:00:00 AM EDT syringe 0 USE DIRECTED USE DIRECTED SOLD: 03/02/2021 [facility] Freestyle Paul 2/[place]/Flash Glucose Monitoring System 01/27/2021 12:00:00 AM EDT completed [facility] ([facility]) 32 gauge x 1/6" 01/15/2021 12:00:00 AM EDT needle 12 USE DIRECTED WITH OZEMPIC ONCE WEEKLY USE DIRECTED WITH OZEMPIC ONCE WEEKLY SOLD: 01/23/2021 [facility] Novofine Plus 01/13/2021 12:00:00 AM EDT acti ve [facility] ([facility]) 0.25 mg or 0.5 mg(2 mg/1.5 mL) 11/29/2020 12:00:00 AM EDT pe n injector 1 INJECT 0.5MG WEEKLY INJECT 0.5MG WEEKLY SOLD: 12/09/2020 [facility] Ozempic (0.25 Or 0.5 MG/Dose) Ozempic (0.25 Or 0.5 MG/Dose) 11/28/2020 12:00:00 AM EDT active [facility] ([facility] ) Allopurinol 300 MG Oral Tablet Allopurinol 300 MG Oral Table t 09/13/2020 12:00:00 AM EDT 1 active allopuri nol 300 MG Oral Tablet [facility] (Edin Paul MD [facility]) Clindamycin 150 MG Oral Capsule [...] to more Policy More Plan Information MEDICARE [id number] SP [id number] A MEDICARE COMPLETE [id number] SP [id number] [facility] [id number] [facility] [id number] [facility]/Medicare Commercial [id number] Self [id number] MEDICARE COMPLETE [id number] SP [id number] [facility] Medicare Commercial [id number] Self [id number] [employer]/Medicare Commercial [id number] Self [facility]/Medicare Commercial [id number] Self [employer] [id number] SP [id number] MEDICARE COMPLETE [id number] SP [id number] Problems, Conditions, and Diagnoses Code Display Name Description Problem Type Effective Dates Data Source(s) 737068711 Pure hypercholesterolemia Pure hypercholesterolemia Pr oblem 11/24/2020 12:00:00 AM EDT [facility] ([facility]) [id number] Essential hypertension Essential hypertension Problem 11/24/2020 12:00:00 AM EDT [facility] ([facility]) Surgeries/Procedures Procedure Description Date Indications Data Source(s) OFFICE OUTPATIENT VISIT 25 MINUTES 03/21/2021 12:00:00 AM EDT [facility] ([facility]) OFFICE OUTPATIENT NEW 60 MINUTES 11/28/2020 12:00:00 A M EDT [facility] ([facility]) Diabetic Foot Exam 09/15/2020 12:00:00 AM EDT [facility] ([facility]) Intermediate Eye Exam Established Patient Intermediate Eye Exam Established Patient 09/13/2020 12:00:00 AM EDT [facility] (Thang id Kunal Paul MD [facility]) Results ID Date Data Source [id number] 05/02/2021 08:28:00 PM EST [facility] Name Value Range Interpretation Code Description Data Ewelina rce(s) Supporting Document(s) SARS coronavirus 2 RNA [Presence] in Res piratory specimen by LUPILLO with probe detection NEGATIVE [facility] This lab was ordered by [facility] a nd reported by [facility]. ID Date Data Source [id number] 03/21/2021 10:08:00 AM EDT [facility] ([facility]) Name Value Range Interpretation Code Description Data Ewelina rce(s) Supporting Document(s) Glucose [Mass/volume] in Serum or Plasma 152 [facility] ([facility]) Hemoglobin A1c/Hemoglobin.total in Blood 6.3 [facility] ([facility]) Procedure Social History Code Duration Value Status Description Data Source(s ) Smoking 02/02/2021 03:16:58 PM EDT Ex-smoker (finding) complet ed Ex-smoker (finding) [facility] (Edin Paul MD [facility]) Smoking 09/14/2020 10:54:58 AM EDT Ex-smoker (finding) complet ed Ex-smoker (finding) [facility] (Edin Paul MD [facility]) Vital Signs ID Date Data Source UNK Name Value Range Interpretation Code Description Data Source(s) Diastolic blood pressure 70 mm[Hg] 70 mm[Hg] [facility] ([facility]) Body weight 204.12 [lb_av] 204.12 [lb_av] MEDEN T ([facility]) Oxygen saturation in Arterial blood by Pulse oximetry 98 % 98 % [facility] ([facility]) Heart rate 81 /min 81 /min [facility] ([facility]) Systolic blood pressure 124 mm[Hg] 124 mm[Hg] M EDENT ([facility]) Diastolic blood pressure 62 mm[Hg] 62 mm[Hg] [facility] ([facility]) Systolic blood pressure 132 mm[Hg] 132 mm[Hg] M EDENT ([facility]) Body height 62.6 [in_i] 62.6 [in_i] [facility] ([facility]) 5'2.60" Body temperature 96.5 [degF] 96.5 [degF] [facility] ([facility]) Body weight 211.00 [lb_av] 211.00 [lb_av] MEDEN T ([facility]) Body mass index (BMI) [Ratio] 37.9 kg/m2 37.9 k g/m2 [facility] ([facility]) Oxygen saturation in Arterial blood by Pulse oximetry 98 % 98 % [facility] ([facility]) Heart rate 63 /min 63 /min [facility] ([facility])
[2021-05-17 15:56] LABS: INR 3.06; PROTHROMBIN TIME 31.9 SECONDS (12.7-14.5)
[2021-05-17 15:57] LABS: PARTIAL THROMBOPLASTIN TIME 51.9 SECONDS (25.9-37.0)
[2021-05-17] MEDS ORDERED: ISOVUE-370 76% 100ML VIAL As Ordered ONE (16:02)
[2021-05-17] MEDS ORDERED: NOREPINEPHRINE BITARTRATE 8 MG in D5W 492 ML IV SCH (16:15)
[2021-05-17] MEDS ORDERED: NS 1,000 ML IV ONE (16:20)
[2021-05-17 16:27] LABS: ALBUMIN 2.1 GM/DL (3.2-5.2); BILIRUBIN,DIRECT 0.3 MG/DL (0.0-0.2); BILIRUBIN,TOTAL 0.6 MG/DL (0.2-1.0); C REACTIVE PROTEIN QUANTITATIV 9.99 MG/DL (0.00-0.30); CALCIUM LEVEL 8.4 MG/DL (8.8-10.2); CREATININE FOR GFR 1.61 MG/DL (0.55-1.30); POTASSIUM SERUM 5.1 MEQ/L (3.5-5.1); TOTAL PROTEIN 5.5 GM/DL (6.4-8.2)
--- NOTE | 2021-05-17 16:42 | REP ---
INDICATION: sepsis COMPARISON: None. TECHNIQUE: Standard helical technique after the intravenous administration of 100 cc Isovue 370. FINDINGS: There is no mediastinal or hilar adenopathy. There is four-chamber cardiac enlargement. There is a small right pleural effusion. The imaged osseous structures are within normal limits for the patient's age. Evaluation of the lung guzmán shows the lung guzmán with a hypoexpanded crowding the vascularity. No masses or significant abnormal opacities are identified. There is evidence of scattered areas of subsegmental atelectatic change. Interstitial edema cannot be ruled out. IMPRESSION: There is a small right pleural effusion and other findings as described above. <Electronically signed by Bart Navarro > 05/17/21 [id number]
--- NOTE | 2021-05-17 16:52 | REP ---
INDICATION: sepsis COMPARISON: Abdominal ultrasound 05/02/2021. TECHNIQUE: CT Scan of the abdomen and pelvis was performed with intravenous administration of 100 cc of Isovue 370, without oral contrast. Sagittal and coronal reconstruction images are performed. FINDINGS: Lung bases: There is a small right pleural effusion with mild bibasilar atelectasis/infiltrate. Liver: No enhancing mass is seen. Gallbladder: A few subcentimeter gallstones are seen in the dependent portion of the gallbladder. There is diffuse gallbladder wall thickening and edema. The common bile duct is not well visualized. Spleen: Normal. Adrenals: There is diffuse thickening of the left adrenal gland. Pancreas: There is edema surrounding the pancreas. This could indicate pancreatitis. Kidneys: There is no hydronephrosis or definite renal mass. Small and large bowel: Unremarkable. There is no free air or obstruction. Free fluid: None. Abdominal aorta: No aneurysm or dissection. Adenopathy: None. Appendix: Not inflamed. Osseous structures: There are degenerative changes of the spine without compression deformity. Pelvis: There is a 4.3 cm right adnexal cyst. IMPRESSION: Once again there are findings compatible with cholecystitis. The common bile duct is not well visualized. Diffuse edema in the fat surrounding the pancreas. This could indicate pancreatitis. No free air or free fluid. No bowel obstruction. No abscess. Nonspecific 4.3 cm right adnexal cyst. <Electronically signed by Usama Arce > 05/17/21 [id number]
[2021-05-17 16:55] LABS: RSV AMPLIFICATION NEGATIVE (NEGATIVE)
[2021-05-17] MEDS ORDERED: MIDAZOLAM INJ 2MG/2ML VIAL (J2250 PER 1MG) IV STA (17:00)
[2021-05-17] MEDS ORDERED: REFRIGERATOR IV KEYS XX PRN (17:00)
[2021-05-17] MEDS ORDERED: MIDAZOLAM INJ 2MG/2ML VIAL (J2250 PER 1MG) As Ordered ONE (17:01)
[2021-05-17] MEDS ORDERED: VASOPRESSIN INJ 20 UNITS in NS 500 ML IV SCH (17:15)
[2021-05-17 17:16] VITALS: BP 112/59
[2021-05-17] MEDS ORDERED: VASOPRESSIN INJ 20 UNITS/ML VIAL As Ordered ONE (17:18)
--- NOTE | 2021-05-17 17:19 | REP ---
INDICATION: intubation. COMPARISON: Today at 3:36 p.m. TECHNIQUE: AP supine portable FINDINGS: There is cardiomegaly accentuated by technique. Since the last exam an endotracheal tube is been placed the tip of which is in satisfactory position at the level of the aortic knob. There is a diffuse increase in the interstitial markings throughout the lung guzmán with patchy airspace opacities all of which have developed since the last exam. There is no change in the osseous structures. IMPRESSION: 1. Endotracheal tube in satisfactory position as described above. 2. Interstitial and airspace opacities as described above. Asymmetric pulmonary edema versus pneumonia. <Electronically signed by Bart Navarro > 05/17/21 [id number]
[2021-05-17 17:35] LABS: VENOUS BASE EXCESS -5.2 (-2.0-2.0); VENOUS O2 SATURATION 96.6 % (60.0-80.0); VENOUS PARTIAL PRESSURE CO2 55.5 mmHg (38.0-50.0); VENOUS PARTIAL PRESSURE O2 102.8 mmHg (30.0-50.0); VENOUS PH 7.235 UNITS (7.330-7.430); VENOUS STANDARD HCO3 20.2 MEQ/L; VENOUS TOTAL CO2 24.7 MEQ/L (24.0-28.0)
[2021-05-17] MEDS ORDERED: MIDAZOLAM HCL 100 MG in D5W 80 ML IV SCH (18:00)
[2021-05-17] MEDS ORDERED: HOME MED LIST COMPLETE! XX SCH (18:15)
[2021-05-18] MEDS ORDERED: UNRESOLVED CLARIFICATION ENTRY XX SCH (00:01)
--- NOTE | 2021-05-18 20:22 | ECGEPIP ---
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
== END 2021-05-17 21:33 | disposition expired ==
LOC: M ED 15:09 → EDBD 15:09 → M ED 21:33
DX: I46.9 Cardiac arrest, cause unspecified (principal); R53.1 Weakness; J91.8 Pleural effusion in other conditions classified elsewhere; D64.89 Other specified anemias; I10 Essential (primary) hypertension; I44.4 Left anterior fascicular block; E10.9 Type 1 diabetes mellitus without complications; N18.30 Chronic kidney disease, stage 3 unspecified; Z86.79 Personal history of other diseases of the circulatory system; Z82.49 Family history of ischemic heart disease and other diseases of the circulatory system; Z79.899 Other long term (current) drug therapy; Z79.82 Long term (current) use of aspirin; Z79.84 Long term (current) use of oral hypoglycemic drugs; Z79.01 Long term (current) use of anticoagulants; Z87.891 Personal history of nicotine dependence
CPT/HCPCS: 31500; 36556; 71045; 71260; 74177; 80047; 80048; 80076; 82150; 82550; 82803; 83605; 84484; 85025; 85610; 85730; 86140; 86850; 86900; 86901; 87040; 87631; 92950; 93005; 93041; 96365; 96375; 99285; J2250; J2543; Q9967